=== PATIENT | male | born 1955 | race African-American/Black ===

== ENCOUNTER 2023-04-22 11:34 | Outpatient (CLI) | payer MEDICARE, MEDICAID, SELFPAY ==
--- NOTE | ~2023-04-22 | CT_ITS ---
EXAMINATION: CT sinus wo con DATE: 04/22/2023 11:50 INDICATION: Nasal cavity masses TECHNIQUE: Computed tomography (CT) of the paranasal sinuses was performed without contrast. Iterativ e reconstruction technique was employed. Exam dose: 287.97 mGy-cm total exam DLP. COMPARISON: None FINDINGS: There is rightward deviation of the nasal septum. There is prominent soft tissue swelling of the inferior nasal turbinates. There is dereje bullosa and intralamellar cell of the left middle nasal turbinate. The right middle nasal turbinate is engulfed by soft tissue swelling in the middle meatus and nasal c avity, which is contiguous with completely opacified right maxillary sinus with medial bulging of the right maxillary sinus wall suggesting mucocele or soft tissue mass. There is complete opacification of the right ostiomeatal complex. The left ostiomeatal complex is patent. There is patchy soft tissue thickening of the right ethmoid air cells. The left ethmoid air cells and left and right sphenoid and frontal sinuses as well as left maxillary sinus are normally developed a nd aerated. The mastoid air cells are normally developed and aerated bilaterally. IMPRESSION: Completely opacified right maxillary sinus with soft tissue projecting from the sinus in to the middle meatus and nasal cavity, with complete opacification of the right ostiomeatal complex. Right maxillary sinus mucocele or soft tissue mass lesion should be considered Patchy soft tissue thickening of the right ethmoid air cells Rightward deviation of nasal septum Dereje bullosa and intralamellar cell of left middle nasal turbinate Reviewed, dictated and finalized at Location A. Reviewed, dictated and finalized at location L. IMPRESSION: Completely opacified right maxillary sinus with soft tissue projec ting from the sinus into the middle meatus and nasal cavity, with complete opac ification of the right ostiomeatal complex. Right maxillary sinus mucocele or s oft tissue mass lesion should be considered Patchy soft tissue thickening of the right ethmoid air cells Rightward deviation of nasal septum Dereje bullosa and intralamellar cell of left middle nasal turbinate
== END 2023-04-22 11:35 ==
PROVIDERS: PCP Otolaryngology; Visit Provider Otolaryngology
DX: J34.89 Other specified disorders of nose and nasal sinuses (principal); J34.2 Deviated nasal septum
CPT/HCPCS: 70486

== ENCOUNTER 2023-05-30 13:21 | Outpatient (CLI) | payer MEDICARE, MEDICAID, SELFPAY ==
--- NOTE | ~2023-05-30 | PE_ITS ---
EXAMINATION: PET_PETPSMAST_PT DATE: 05/30/2023 15:53 INDICATION: Malignant neoplasm of prostate TECHNIQUE: 9.081 mCi of pipflufolastat F-18 (18-F-DCFPyL) was administered i.v. Low dose computed to mography (CT) images were acquired from the base of the brain to the base of the brain to the proxima l thighs for attenuation correction and anatomic localization. Positron emission tomography (PET) tomás ges were acquired in the same distribution beginning 89 minutes after injection. Images including fus ed PET/CT images were reconstructed in axial, coronal, and sagittal planes. Automated exposure contro l technique was employed. The dose-length product was 643.23mGy-cm. COMPARISON: None FINDINGS: Head/neck: Typical pattern of symmetric physiologic increased activity in the lacrimal, parotid and submandibula r glands as well as along the mucosa of the nasal and oral cavities, the pee-, naso- and hypopharynx, the glottis and esophagus. There is also a typical pattern of symmetric tiny foci of mild likely phy siologic neural ganglia uptake at a few bilateral cervical neural foramina. Near complete opacificati on of the right maxillary sinus with central increased attenuation and thickened sclerotic pace with low uptake along the pace of the sinus which likely inflammatory in etiology consistent with acute on chronic sinusitis. No pathologically enlarged cervical lymphadenopathy or suspicious foci of incre ased uptake in the visualized head or neck. Chest: No suspicious pulmonary nodules, pneumonia, pulmonary edema or pleural effusion. Heart size normal. A therosclerotic coronary artery calcification. No pericardial effusion. Thoracic aorta is normal in ca liber. No pathologically enlarged PSMA avid thoracic lymphadenopathy. Abdomen/pelvis/proximal thighs: Physiologic renal accumulation and excretion of activity in the kidneys, bladder and along portions o f ureters. Routine defect associated with a 2.1 cm right renal cyst. Normal degree and slightly heter ogenous pattern of increased uptake throughout the liver and spleen without radiologic correlate or d ominant PSMA avid lesion. The gallbladder, pancreas and bilateral adrenal glands are normal. Moderate uptake scattered throughout the bowels with typical duodenal and proximal jejunal predominance and w ithout radiologic correlate, also likely physiologic. Normal appendix. There are to approximately 1 c m diameter regions of prominent increased uptake without CT correlate at the right side of the prosta te, the more cephalad with maximal SUV of 23.9 in in the more caudal with maximal SUV of 40.6. Simila r small focus of mild uptake with maximal SUV of 6.2 at the inferior left prostate. There are a few a dditional small symmetric foci of mild likely ganglia related uptake at the lumbosacral neural forami na. No other abnormal foci of increased uptake or pathologically enlarged lymphadenopathy in the abdo men, pelvis or proximal thighs. Small left and moderate-sized right fat-containing inguinal hernias. Musculoskeletal: Small focus of intense likely extravasated soft tissue uptake at the site of injection at the right a ntecubital fossa. No other suspicious lytic, blastic or PSMA avid lesions. IMPRESSION: 1. 3 foci of increased uptake at the prostate consistent with primary prostate cancer. No evident met astatic disease. 2. Likely acute on chronic right maxillary sinusitis. Reviewed, dictated and finalized at location A. OGICAL SCIENCE TECHNICIAN FISH IMPRESSION: 1. 3 foci of increased uptake at the prostate consistent with primary prostate cancer. No evident metastatic disease. 2. Likely acute on chronic right maxillary sinusitis.
== END 2023-05-30 13:22 | disposition home or self-care (01) ==
PROVIDERS: PCP Internal Medicine; Visit Provider Urology
DX: C61 Malignant neoplasm of prostate (principal)
CPT/HCPCS: 78815; A9595

== ENCOUNTER 2023-08-05 07:32 | Outpatient (CLI) | payer MEDICARE, MEDICAID, SELFPAY ==
--- NOTE | ~2023-08-05 | MR_ITS ---
EXAMINATION: MR pelvis wo/w con DATE: 08/05/2023 08:56 INDICATION: Prostate cancer. TECHNIQUE: Magnetic resonance imaging (MRI) of the pelvis was performed without and with 17 mL MultiH ance intravenous contrast. COMPARISON: PET/CT 05/30/2023 FINDINGS: There is a right inguinal hernia containing fat and a portion of the bladder. There is a left inguina l hernia containing fat. There are no dilated loops of bowel. The prostate is mildly enlarged. There are no pathologically enlarged lymph nodes. There is no free intraperitoneal fluid. There is no osseo us metastatic disease. IMPRESSION: 1. Mildly enlarged prostate. No evidence of metastatic disease. Reviewed, dictated and finalized at location E. ATIONS CONSULTANT
== END 2023-08-05 07:33 | disposition home or self-care (01) ==
PROVIDERS: PCP Internal Medicine; Visit Provider Radiology Radiation Oncology
DX: C61 Malignant neoplasm of prostate (principal); N40.0 Benign prostatic hyperplasia without lower urinary tract symptoms
CPT/HCPCS: 72197; A9577

== ENCOUNTER 2024-10-08 09:13 | Outpatient (CLI) | payer MEDICARE, MEDICAID, SELFPAY ==
[2024-10-08 09:51] LABS: Basophils Percent Auto 0.4 % (0.2-1.2); Eosinophils Absolute Auto 0.1 K/mm3 (0-0.3); Eosinophils Percent Auto 4.8 % (0-4.4); Hematocrit 32.2 % (42.0-52.0); Hemoglobin 10.3 g/dL (14.0-18.0); Immature Granulocyte Absolute 0.01 K/mm3 (0.00-0.031); Immature Granulocyte Percent A 0.4 % (0-0.5); Lymphocytes Percent Auto 22.1 % (18.3-44.2); Mean Corpuscular Hemoglobin 28.5 pg (26-34); Mean Platelet Volume 9.7 fl (7.4-10.4); Monocytes Absolute Auto 0.3 K/mm3 (0.1-0.6); Monocytes Percent Auto 11.8 % (2.6-8.5); Neutrophils Absolute Auto 1.7 K/mm3 (1.3-6.7); Neutrophils Percent Auto 60.5 % (45.5-73.1); Platelet Count Result 150 k/mm3 (150-375); Red Blood Count 3.62 M/mm3 (4.6-6.20); White Blood Count 2.7 K/mm3 (4.5-10.0)
[2024-10-08 09:55] LABS: Add Urine Microscopic? YES; Appearance Urine Clear (Clear); Bilirubin Urine Negative (Negative); Blood Urine Trace (Negative); Color Urine Yellow (Yellow); Glucose Urine UA Negative (Negative); Ketones Urine Negative (Negative); Leukocyte Esterase Ur Negative LEU/UL (Negative); Nitrate Urine Negative (Negative); Protein Urine 2+ mg/dL (Negative); Specific Grav Ur 1.015 (1.001-1.035); Urobilinogen Urine 0.2 mg/dL (<2.0)
[2024-10-08 10:02] LABS: Alanine Aminotransferase 19 U/L (6-50); Albumin Level 4.6 g/dL (3.5-5.1); Alkaline Phosphatase 113 U/L (38-126); Anion Gap 15 mmol/L (4-12); Aspartate Amino Transferase 28 U/L (17-59); Bilirubin,Total 0.4 mg/dL (0.2-1.3); Blood Urea Nitrogen 45 mg/dL (9-20); Carbon Dioxide 22 mmol/L (22-30); Chloride 108 mmol/L (98-107); Estimated Glomerular Filt Rate 20; Glucose 96 mg/dL (65-110); Potassium 3.2 mmol/L (3.4-5.0); Sodium 145 mmol/L (137-145); Uric Acid 3.9 mg/dL (3.5-8.5)
--- OUTSIDE RECORDS SUMMARY | 2024-10-08 10:11 | XMS_ITS ---
Author Organization [facility] Office Address [address] [place] [address] Care Team Providers Care Lunch Cook Name Role Phone Terry Al Unavailable [phone] MEDICATIONS Medication SIG (Take, Route, Frequency, Duration) Notes Start Date End Date Status Flomax 0.4 MG 1 capsule Orally twi ce a day for 90 Active Sodium Bicarbonate 650 MG 2 tablet Orall y twice a day for 90 days 11/08/2022 Active cloNIDine HCl 0.1 MG Take 1 tablet by [facility] once daily for 90 Active amLODIPine Besylate 10 MG 1 tablet Orall y Once a day for 90 09/20/2022 Active amLODIPine Besylate 10 MG 1 tablet Orall y Once a day for 90 days 09/20/2022 Active Calcitriol 0.25 MCG Take 1 capsule by [facility] once daily for 90 Active Veltassa 8.4 GM DISSOLVE 1 PACKET IN WATER DRINK BY MOUTH ONCE DAILY. TAKE OTHER MEDICATIONS AT LEAST 3 HOURS BEFORE OR 3 HOURS AFTER THIS MEDICATION. for 30 Active Vitamin D (Ergocalciferol) 1.25 MG (60819 UT) Take 1 capsule by mouth once a week for 91 Active Encounters Encounter Location Date Provider Diagnosis [place] [facility] [address] [facility] [address] [place] [address] 06/30/2024 Al Stewart Chronic kidney disea se, stage 4 (severe) N18.4 ; Essential hypertension I10 ; Renal osteodystrophy N25.0 ; Type 2 diabetes mellitus with hyperglycemia E11.65 ; Secondary hyperparathyroidism, not elsewhere classified E21.1 and Neutropenia due to infection D70.3 ASSESSMENTS Encounter Date Diagnosis Assessment Notes Treatment Notes Treatment Clinical Notes Section Notes 06/30/2024 Chronic kidney disease, stage 4 (severe) (ICD-10 - N18.4) 06/30/2024 Essential hypertension (ICD-10 - I10) 06/30/2024 Renal osteodystrophy (ICD-10 - N25.0) 06/30/2024 Type 2 diabetes mellitus with hyperglycemia (ICD-10 - E11.65) 06/30/2024 Secondary hyperparathyroidism , not elsewhere classified (ICD-10 - E21.1) 06/30/2024 Neutropenia due to infection (ICD-10 - D70.3) PLAN OF TREATMENT Next Appt Details Provider Name:Al Stewart , 10/15/2024 01:30:00 PM, [address] [facility] [address], [address], Progress Notes * GEREMIAS ARRIAGADOB:1955 (69 yo M)Acc No.[id number]:06/30/2024 Progress Notes Patient: GEREMIAS ARRIAGA Provider: MD YUMIKO, F.Maria GCNgoc, F.A.SFransiscoN. :1955 Age:69 Y Sex:Male Date:06/30/2024 Address:[address] [place] [address] Subjective: * Chief Complaints: * * Medical History: * Medications: Taking amLODIPine Besylate 10 MG Tablet 1 tablet Orally Once a day , Taking amLODIPine Besylate 10 MG Tablet 1 tablet Orally Once a day , Taking Sodium Bicarbonate 650 MG Tablet 2 tablet Orally twice a day , Taking Flomax 0.4 MG Capsule 1 capsule Orally twice a day , Taking cloNIDine HCl 0.1 MG Tablet Take 1 tablet by mouth once daily , Taking Calcitriol 0.25 MCG Capsule Take 1 capsule by mouth once daily , Taking Vitamin D (Ergocalciferol) 1.25 MG (97115 UT) Capsule Take 1 capsule by mouth once a week , Taking Veltassa 8.4 GM Packet DISSOLVE 1 PACKET IN WATER DRINK BY MOUTH ONCE DAILY. TAKE OTHER MEDICATIONS AT LEAST 3 HOURS BEFORE OR 3 HOURS AFTER THIS MEDICATION. Objective: Assessment: * Assessment: 1. Chronic kidney disease, stage 4 (severe) - N18.4 (Primary) 2. Essential hypertension - I10 3. Renal osteodystrophy - N25.0 4. Type 2 diabetes mellitus with hyperglycemia - E11.65 5. Secondary hyperparathyroidism, not elsewhere classified - E21.1 6. Neutropenia due to infection - D70.3 Plan: * Treatment: * Billing Information: * Visit Code: [id number] Office Visit, Est Pt., Level 4. * Procedure Codes: * Sign off status: Pending * Provider: MD YUMIKO, F.A.C.P, F.A.S.N. Date: 06/30/2024
--- OUTSIDE RECORDS SUMMARY | 2024-10-08 10:11 | XMS_ITS ---
Author Organization [facility] Address [address] [facility] [address] [facility] [address] [place] [address] Care Team Providers Care Punch Hand Name Role Phone TerryVanceAl Unavailable [phone] MEDICATIONS Medication SIG (Take, Route, Frequency, Duration) Notes Start Date End Date Status Sodium Bicarbonate 650 MG 2 tablet Orall y three times a day for 90 days 08/20/2024 Active Encounters Encounter Location Date Provider Diagnosis [place] [facility] 2043 [facility] [address] [place] [address] 08/20/2024 Al Stewart PLAN OF TREATMENT Medication Medication Name Sig Start Date Stop Date Notes Sodium Bicarbonate 650 MG 2 tablet Orall y three times a day for 90 days 08/20/2024 Next Appt Details Provider Name:Al Stewart , 10/15/2024 01:30:00 PM, 2043 [facility] [address], [place], [address], Progress Notes * KWAMEGEREMIAS HOOPERDOB:1955 (69 yo M)Acc No.[id number]:08/20/2024 Patient: GEREMIAS ARRIAGA :1955 Age:69 Y Sex:Male Address:[address] [place] [address], [address] * Refills Start Sodium Bicarbonate Tablet, 650 MG, Orally, 540 Tablet, 2 tablet, three times a day, 90 days * * Date:
--- OUTSIDE RECORDS SUMMARY | 2024-10-08 10:12 | XMS_ITS | CONTINUITY OF CARE DOCUMENT ---
Author Name donny hines Address Unknown Organization [facility] Address [address] [facility] [address] [place] [address] Phone [phone] Care Team Providers Care Community Support Professional Name Role Phone Katherine Bates MD Unavailable Katherine Bates MD Unavailable INSURANCE PROVIDERS Payer name Policy type / Coverage type [place] red green party ID [facility] MEDICARE COMPLETE HMO Other [id number] [employer] Medicaid 1 [id number]
--- OUTSIDE RECORDS SUMMARY | 2024-10-08 10:12 | XMS_ITS ---
Author Organization [facility] Address [address] [facility] [address] [place] [address] Care Team Providers Care Storeroom Supervisor Name Role Phone Al Stewart Unavailable [phone] MEDICATIONS Medication SIG (Take, Route, Frequency, Duration) Notes Start Date End Date Status Calcitriol 0.25 MCG Take 1 capsule by mo ut once daily for 90 Active cloNIDine HCl 0.1 MG Take 1 tablet by mo ut once daily for 90 Active Veltassa 8.4 GM DISSOLVE 1 PACKET IN WATER DRINK BY MOUTH ONCE DAILY. TAKE OTHER MEDICATIONS AT LEAST 3 HOURS BEFORE OR 3 HOURS AFTER THIS MEDICATION. Orally Once a day for 30 days Active Vitamin D (Ergocalciferol) 1.25 MG (79507 UT) Take 1 capsule by mouth once a week for 91 Active Flomax 0.4 MG 1 capsule Orally twi ce a day for 90 Active amLODIPine Besylate 10 MG 1 tablet Orall y Once a day for 90 09/20/2022 Active amLODIPine Besylate 10 MG 1 tablet Orall y Once a day for 90 days 09/20/2022 Active Sodium Bicarbonate 650 MG 2 tablet Orall y twice a day for 90 days 11/08/2022 Active PROBLEMS Problem Type ICD Code Onset Dates Problem Status W/U Status Risk SNOMED Code Notes Problem Hyperlipidemia, unspecified (E78.5) Active confirmed Hyperlipidemia (13815660) Encounters Encounter Location Date Provider Diagnosis [place] [facility] 2043 [facility] 15 [place] [address] 08/20/2024 Al Stewart Chronic kidney disea se, stage 4 (severe) N18.4 ; Type 2 diabetes mellitus with hyperglycemia E11.65 ; Renal osteodystrophy N25.0 ; Secondary hyperparathyroidism, not elsewhere classified E21.1 ; Neutropenia due to infection D70.3 ; Essential hypertension I10 and Hyperlipidemia, unspecified E78.5 ASSESSMENTS Encounter Date Diagnosis Assessment Notes Treatment Notes Treatment Clinical Notes Section Notes 08/20/2024 Chronic kidney disease, stage 4 (severe) (ICD-10 - N18.4) 08/20/2024 Type 2 diabetes mellitus with hyperglycemia (ICD-10 - E11.65) 08/20/2024 Renal osteodystrophy (ICD-10 - N25.0) 08/20/2024 Secondary hyperparathyroidism , not elsewhere classified (ICD-10 - E21.1) 08/20/2024 Neutropenia due to infection (ICD-10 - D70.3) 08/20/2024 Essential hypertension (ICD-10 - I10) 08/20/2024 Hyperlipidemia, unspecified (ICD-10 - E78.5) PLAN OF TREATMENT Next Appt Details Provider Name:Al Terry , 10/15/2024 01:30:00 PM, [address], [facility], Progress Notes * GEREMIAS ARRIAGADOB:1955 (69 yo M)Acc No.[id number]:08/20/2024 Progress Notes Patient: GEREMIAS ARRIAGA Provider: MD YUMIKO, F.A.C.P, F.A.S.N. :1955 Age:69 Y Sex:Male Date:08/20/2024 Address:[address] [place] [address] Subjective: * Chief Complaints: * * Medical History: * Medications: Taking amLODIPine Besylate 10 MG Tablet 1 tablet Orally Once a day , Taking amLODIPine Besylate 10 MG Tablet 1 tablet Orally Once a day , Taking Sodium Bicarbonate 650 MG Tablet 2 tablet Orally twice a day , Taking Flomax 0.4 MG Capsule 1 capsule Orally twice a day , Taking Vitamin D (Ergocalciferol) 1.25 MG (95834 UT) Capsule Take 1 capsule by mouth once a week , Taking Veltassa 8.4 GM Packet DISSOLVE 1 PACKET IN WATER DRINK BY MOUTH ONCE DAILY. TAKE OTHER MEDICATIONS AT LEAST 3 HOURS BEFORE OR 3 HOURS AFTER THIS MEDICATION. Orally Once a day , Taking cloNIDine HCl 0.1 MG Tablet Take 1 tablet by mouth once daily , Taking Calcitriol 0.25 MCG Capsule Take 1 capsule by mouth once daily Objective: Assessment: * Assessment: 1. Chronic kidney disease, stage 4 (severe) - N18.4 (Primary) 2. Type 2 diabetes mellitus with hyperglycemia - E11.65 3. Renal osteodystrophy - N25.0 4. Secondary hyperparathyroidism, not elsewhere classified - E21.1 5. Neutropenia due to infection - D70.3 6. Essential hypertension - I10 7. Hyperlipidemia, unspecified - E78.5 Plan: * Treatment: * Billing Information: * Visit Code: [id number] Office Visit, Est Pt., Level 4. * Procedure Codes: * Sign off status: Pending * Provider: MD YUMIKO, F.A.C.P, F.A.S.N. Date: 08/20/2024
--- OUTSIDE RECORDS SUMMARY | 2024-10-08 10:12 | XMS_ITS | Patient Health Record ---
Author Organization [facility] Address [address] [place] [address] Care Team Providers Care Transformer Maker Name Role Phone Al Stewart Unavailable [phone] REASON FOR REFERRAL No Information MEDICATIONS Medication SIG (Take, Route, Frequency, Duration) Notes Start Date End Date Status Sodium Bicarbonate 650 MG 2 tablet Orall y three times a day for 90 days 08/20/2024 Active Calcitriol 0.25 MCG Take 1 capsule by ar ut once daily for 90 Active cloNIDine HCl 0.1 MG Take 1 tablet by mo ut once daily for 90 Active Veltassa 8.4 GM DISSOLVE 1 PACKET IN WATER DRINK BY MOUTH ONCE DAILY. TAKE OTHER MEDICATIONS AT LEAST 3 HOURS BEFORE OR 3 HOURS AFTER THIS MEDICATION. Orally Once a day for 30 days Active amLODIPine Besylate 10 MG 1 tablet Orall y Once a day for 90 09/20/2022 Active amLODIPine Besylate 10 MG 1 tablet Orall y Once a day for 90 days 09/20/2022 Active Vitamin D (Ergocalciferol) 1.25 MG (42607 UT) Take 1 capsule by mouth once a week for Active Flomax 0.4 MG 1 capsule Orally twi ce a day for 90 Active Sodium Bicarbonate 650 MG 2 tablet Orall y twice a day for 90 days 11/08/2022 Active PROBLEMS Problem Type ICD Code Onset Dates Problem Status W/U Status Risk SNOMED Code Notes Problem Neutropenia due to infection (D70.3) Active confirmed Neutropenia associated with infectious disease (83238390) Problem Type 2 diabetes mellitus with hyperglycemia (E11.65) Active confirmed Hyperglycemia d ue to type 2 diabetes mellitus (411637331561201) Problem Secondary hyperparathyroid ism, not elsewhere classified (E21.1) Active confirmed Secondary hyperparathyroidism (63001372) Problem Hyperlipidemia, unspecified (E78.5) Active confirmed Hyperlipidemia (71881674) Problem Chronic kidney disease, stage 4 (severe) (N18.4) Active confirmed Chronic kid marta disease stage 4 (201519727) Problem Renal osteodystrophy (N25.0) Active confirmed Renal osteodyst rophy (08039478) Problem Essential hypertension (I10) Active confirmed Essential hypertension (93240482) Encounters Encounter Location Date Provider Diagnosis [facility] [address] [place] [address] 12/05/2023 Al Stewart Chronic kidney disea se, stage 4 (severe) N18.4 ; Type 2 diabetes mellitus with hyperglycemia E11.65 ; Renal osteodystrophy N25.0 ; Secondary hyperparathyroidism, not elsewhere classified E21.1 and Neutropenia due to infection D70.3 [facility] [address] [place] [address] 02/20/2024 Al Stewart Chronic kidney disea se, stage 4 (severe) N18.4 ; Essential hypertension I10 ; Type 2 diabetes mellitus with hyperglycemia E11.65 ; Renal osteodystrophy N25.0 ; Secondary hyperparathyroidism, not elsewhere classified E21.1 and Neutropenia due to infection D70.3 [facility] [address] [place] [address] 04/30/2024 Al Stewart Chronic kidney disea se, stage 4 (severe) N18.4 ; Type 2 diabetes mellitus with hyperglycemia E11.65 ; Renal osteodystrophy N25.0 ; Secondary hyperparathyroidism, not elsewhere classified E21.1 ; Neutropenia due to infection D70.3 and Essential hypertension I10 [facility] [address] [place] [address] 06/30/2024 Al Stewart Chronic kidney disea se, stage 4 (severe) N18.4 ; Essential hypertension I10 ; Renal osteodystrophy N25.0 ; Type 2 diabetes mellitus with hyperglycemia E11.65 ; Secondary hyperparathyroidism, not elsewhere classified E21.1 and Neutropenia due to infection D70.3 [facility] [address] [address] 08/20/2024 Al Stewatr Chronic kidney disea se, stage 4 (severe) N18.4 ; Type 2 diabetes mellitus with hyperglycemia E11.65 ; Renal osteodystrophy N25.0 ; Secondary hyperparathyroidism, not elsewhere classified E21.1 ; Neutropenia due to infection D70.3 ; Essential hypertension I10 and Hyperlipidemia, unspecified E78.5 [facility] [address] [address] 08/20/2024 Al [facility] Office [address] [address] 03/04/2024 Al [facility] Office [address] [address] 04/12/2024 Al Stewart ASSESSMENTS Encounter Date Diagnosis Assessment Notes Treatment Notes Treatment Clinical Notes Section Notes 12/05/2023 Chronic kidney disease, stage 4 (severe) (ICD-10 - N18.4) 02/20/2024 Chronic kidney disease, stage 4 (severe) (ICD-10 - N18.4) 02/20/2024 Essential hypertension (ICD-10 - I10) 04/30/2024 Chronic kidney disease, stage 4 (severe) (ICD-10 - N18.4) 06/30/2024 Chronic kidney disease, stage 4 (severe) (ICD-10 - N18.4) 06/30/2024 Essential hypertension (ICD-10 - I10) 08/20/2024 Type 2 diabetes mellitus with hyperglycemia (ICD-10 - E11.65) 08/20/2024 Chronic kidney disease, stage 4 (severe) (ICD-10 - N18.4) 08/20/2024 Renal osteodystrophy (ICD-10 - N25.0) 06/30/2024 Renal osteodystrophy (ICD-10 - N25.0) 04/30/2024 Type 2 diabetes mellitus with hyperglycemia (ICD-10 - E11.65) 02/20/2024 Type 2 diabetes mellitus with hyperglycemia (ICD-10 - E11.65) 12/05/2023 Type 2 diabetes mellitus with hyperglycemia (ICD-10 - E11.65) 12/05/2023 Renal osteodystrophy (ICD-10 - N25.0) 02/20/2024 Renal osteodystrophy (ICD-10 - N25.0) 04/30/2024 Renal osteodystrophy (ICD-10 - N25.0) 06/30/2024 Type 2 diabetes mellitus with hyperglycemia (ICD-10 - E11.65) 08/20/2024 Secondary hyperparathyroidism , not elsewhere classified (ICD-10 - E21.1) 08/20/2024 Neutropenia due to infection (ICD-10 - D70.3) 06/30/2024 Secondary hyperparathyroidism , not elsewhere classified (ICD-10 - E21.1) 02/20/2024 Secondary hyperparathyroidism , not elsewhere classified (ICD-10 - E21.1) 04/30/2024 Secondary hyperparathyroidism , not elsewhere classified (ICD-10 - E21.1) 12/05/2023 Secondary hyperparathyroidism , not elsewhere classified (ICD-10 - E21.1) 12/05/2023 Neutropenia due to infection (ICD-10 - D70.3) 02/20/2024 Neutropenia due to infection (ICD-10 - D70.3) 04/30/2024 Neutropenia due to infection (ICD-10 - D70.3) 06/30/2024 Neutropenia due to infection (ICD-10 - D70.3) 08/20/2024 Essential hypertension (ICD-10 - I10) 08/20/2024 Hyperlipidemia, unspecified (ICD-10 - E78.5) 04/30/2024 Essential hypertension (ICD-10 - I10) PLAN OF TREATMENT Next Appt Details Provider Name:Al Stewart , 10/15/2024 01:30:00 PM, [address], [facility] [address], [place], [address],
[2024-10-08 10:14] LABS: Parathyroid Intact 26.4 pg/mL (14.5-75.2)
[2024-10-08 10:16] LABS: Hemoglobin A1C 5.8 % (<5.7)
[2024-10-08 10:47] LABS: Creatinine Urine 106.7 mg/dL
[2024-10-08 11:04] LABS: Vitamin D 25 Hydroxy 67.9 ng/mL
[2024-10-08 11:16] LABS: Microalbumin Urine Random 409.5 mg/L (0-16.7)
[2024-10-08 11:17] LABS: MALB Creatinine Ratio 383.8 mg/g (0-30)
== END 2024-10-08 09:14 | disposition home or self-care (01) ==
PROVIDERS: PCP Internal Medicine; Visit Provider Specialist
DX: I12.9 Hypertensive chronic kidney disease with stage 1 through stage 4 chronic kidney disease, or unspecified chronic kidney disease (principal); N18.4 Chronic kidney disease, stage 4 (severe); E55.9 Vitamin D deficiency, unspecified; N39.0 Urinary tract infection, site not specified; R35.0 Frequency of micturition; R73.09 Other abnormal glucose; E78.41 Elevated Lipoprotein(a); E21.3 Hyperparathyroidism, unspecified; R94.6 Abnormal results of thyroid function studies
CPT/HCPCS: 36415; 80053; 81001; 82043; 82306; 83036; 83970; 84443; 84550; 85025

== ENCOUNTER 2024-11-09 09:28 | Outpatient (CLI) | payer MEDICARE, MEDICAID, SELFPAY ==
[2024-11-09 09:57] LABS: Add Urine Microscopic? YES; Appearance Urine Clear (Clear); Bacteria Urine None Seen /hpf; Bilirubin Urine Negative (Negative); Blood Urine Negative (Negative); Color Urine Yellow (Yellow); Glucose Urine UA Negative (Negative); Ketones Urine Negative (Negative); Leukocyte Esterase Ur Negative LEU/UL (Negative); Nitrate Urine Negative (Negative); Non Pathogenic Casts 0-2; Protein Urine 1+ mg/dL (Negative); RBC Urine 0-2 /hpf (0-2); Specific Grav Ur 1.018 (1.001-1.035); Squamous Epithelial Cell Urine None Seen /hpf (Few); Urobilinogen Urine 0.2 mg/dL (<2.0); WBC Urine 0-5 /hpf (0-3)
[2024-11-09 10:01] LABS: Hemoglobin A1C 6.3 % (<5.7)
[2024-11-09 10:12] LABS: Alanine Aminotransferase 21 U/L (6-50); Albumin Level 4.8 g/dL (3.5-5.1); Alkaline Phosphatase 92 U/L (38-126); Anion Gap 13 mmol/L (4-12); Aspartate Amino Transferase 29 U/L (17-59); Bilirubin,Total 0.4 mg/dL (0.2-1.3); Blood Urea Nitrogen 61 mg/dL (9-20); Calcium 9.6 mg/dL (8.4-10.2); Carbon Dioxide 20 mmol/L (22-30); Chloride 107 mmol/L (98-107); Estimated Glomerular Filt Rate 16; Glucose 152 mg/dL (65-110); Potassium 4.4 mmol/L (3.4-5.0); Sodium 140 mmol/L (137-145); Uric Acid 3.4 mg/dL (3.5-8.5)
[2024-11-09 10:17] LABS: Parathyroid Intact 25.5 pg/mL (14.5-75.2)
[2024-11-09 10:26] LABS: Creatinine Urine 113.7 mg/dL
--- OUTSIDE RECORDS SUMMARY | 2024-11-09 10:33 | XMS_ITS ---
Author Organization [facility] Address [address] [facility] [address] [facility] [address] [place] [address] Care Team Providers Care Dye House Worker Name Role Phone TerryOwenAl Unavailable [phone] MEDICATIONS Medication SIG (Take, Route, Frequency, Duration) Notes Start Date End Date Status Sodium Bicarbonate 650 MG 2 tablet Orall y three times a day for 90 days 08/20/2024 Active Encounters Encounter Location Date Provider Diagnosis [place] [facility] [address] [facility] 15 [place] [address] 08/20/2024 Al Stewart PLAN OF TREATMENT Medication Medication Name Sig Start Date Stop Date Notes Sodium Bicarbonate 650 MG 2 tablet Orall y three times a day for 90 days 08/20/2024 Next Appt Details Provider Name:Al Stewart , 11/12/2024 02:00:00 PM, 2043 [facility] [address], [place], [address], Progress Notes * KWAMEGEREMIAS HOOPERDOB:1955 (69 yo M)Acc No.[id number]:08/20/2024 Patient: GEREMIAS ARRIAGA :1955 Age:69 Y Sex:Male Address:[address] [place] [address], [address] * Refills Start Sodium Bicarbonate Tablet, 650 MG, Orally, 540 Tablet, 2 tablet, three times a day, 90 days * * Date:
--- OUTSIDE RECORDS SUMMARY | 2024-11-09 10:33 | XMS_ITS ---
Author Organization [facility] Office Address [address] [facility] [address] [facility] [address] [place] [address] Care Team Providers Care Biopharmaceutical Rep Name Role Phone Al Stewart Unavailable [phone] MEDICATIONS Medication SIG (Take, Route, Fr equency, Duration) Notes Start Date End Date Status Veltassa 8.4 GM DISSOLVE 1 PACKET IN WATER DRINK BY MOUTH ONCE DAILY. TAKE OTHER MEDICATIONS AT LEAST 3 HOURS BEFORE OR 3 HOURS AFTER THIS MEDICATION. Orally Once a day for 30 days Ac tive Encounters Encounter Location Date Provider Diagnosis [place] [facility] [address] [facility] [address] [place] [address] 10/25/2024 Al Stewart PLAN OF TREATMENT Medication Medication Name Sig Start Date Stop Date Notes Veltassa 8.4 GM DISSOLVE 1 PACKET IN WATER DRINK BY MOUTH ONCE DAILY. TAKE OTHER MEDICATIONS AT LEAST 3 HOURS BEFORE OR 3 HOURS AFTER THIS MEDICATION. Orally Once a day for 30 days Next Appt Details Provider Name:Al Stewart , 11/12/2024 02:00:00 PM, [address] [facility], [facility] [address], [place], [address], Progress Notes * GEREMIAS ARRIAGADOB:1955 (69 yo M)Acc No.[id number]:10/25/2024 Patient: GEREMIAS ARRIAGA :1955 Age:69 Y Sex:Male Address:[address] [place] [address], [address] * Refills Refill Veltassa Packet, 8.4 GM, Orally, 30, DISSOLVE 1 PACKET IN WATER DRINK BY MOUTH ONCE DAILY. TAKE OTHER MEDICATIONS AT LEAST 3 HOURS BEFORE OR 3 HOURS AFTER THIS MEDICATION., Once a day, 30 days, Refills=3 * * Date:
--- OUTSIDE RECORDS SUMMARY | 2024-11-09 10:33 | XMS_ITS | CONTINUITY OF CARE DOCUMENT ---
Author Name donny hines Address Unknown Organization [facility] Address [address] [facility] [address] [place] [address] Phone [phone] Care Team Providers Care Network Consultant Name Role Phone Katherine Btaes MD Unavailable Katherine Bates MD Unavailable [phone] INSURANCE PROVIDERS Payer name Policy type / Coverage type [place] red libertarian ID [facility] MEDICARE COMPLETE HMO Other [id number] [employer] Medicaid 1 [id number]
--- OUTSIDE RECORDS SUMMARY | 2024-11-09 10:33 | XMS_ITS ---
Author Organization [facility] Office Address [address] [facility] [address] [place] [address] Care Team Providers Care Moving Picture Operator Name Role Phone Terry Al Unavailable [phone] PROBLEMS Problem Type ICD Code Onset Dates Problem Status W/U Status Risk SNOMED Code Notes Problem Malignant neoplasm of prostate (C61) Active confirmed Malignant neoplasm of prostate (227391920) Problem Gastro-esophagea l reflux disease without esophagitis (K21.9) Active confirmed Gastro-esophage al reflux disease without esophagitis (818157181) Problem Proteinuria, unspecified (R80.9) Active confirmed Proteinuria (78037859) Encounters Encounter Location Date Provider Diagnosis [place] [facility] [address] [facility] [address] [place] [address] 10/15/2024 Al Stewart Chronic kidney disea se, stage 4 (severe) N18.4 ; Essential hypertension I10 ; Type 2 diabetes mellitus with hyperglycemia E11.65 ; Renal osteodystrophy N25.0 ; Secondary hyperparathyroidism, not elsewhere classified E21.1 ; Neutropenia due to infection D70.3 ; Hyperlipidemia, unspecified E78.5 ; Malignant neoplasm of prostate C61 ; Gastro-esophageal reflux disease without esophagitis K21.9 and Proteinuria, unspecified R80.9 ASSESSMENTS Encounter Date Diagnosis Assessment Notes Treatment Notes Treatment Clinical Notes Section Notes 10/15/2024 Chronic kidney disease, stage 4 (severe) (ICD-10 - N18.4) 10/15/2024 Essential hypertension (ICD-10 - I10) 10/15/2024 Type 2 diabetes mellitus with hyperglycemia (ICD-10 - E11.65) 10/15/2024 Renal osteodystrophy (ICD-10 - N25.0) 10/15/2024 Secondary hyperparathyroidism , not elsewhere classified (ICD-10 - E21.1) 10/15/2024 Neutropenia due to infection (ICD-10 - D70.3) 10/15/2024 Hyperlipidemia, unspecified (ICD-10 - E78.5) 10/15/2024 Malignant neoplasm of prostate (ICD-10 - C61) 10/15/2024 Gastro-esophageal reflux disease without esophagitis (ICD-10 - K21.9) 10/15/2024 Proteinuria, unspecified (ICD-10 - R80.9) PLAN OF TREATMENT Next Appt Details Provider Name:Al Stewart , 11/12/2024 02:00:00 PM, [address] [facility] [address], [address], Progress Notes * GEREMIAS ARRIAGADOB:1955 (69 yo M)Acc No.[id number]:10/15/2024 Progress Notes Patient: GEREMIAS ARRIAGA Provider: MD YUMIKO, Quynh.A.C.P, F.A.S.N. :1955 Age:69 Y Sex:Male Date:10/15/2024 Address:[address] [place], [place] [id number] Subjective: * Chief Complaints: * * Medical History: Objective: Assessment: * Assessment: 1. Chronic kidney disease, stage 4 (severe) - N18.4 (Primary) 2. Essential hypertension - I10 3. Type 2 diabetes mellitus with hyperglycemia - E11.65 4. Renal osteodystrophy - N25.0 5. Secondary hyperparathyroidism, not elsewhere classified - E21.1 6. Neutropenia due to infection - D70.3 7. Hyperlipidemia, unspecified - E78.5 8. Malignant neoplasm of prostate - C61 9. Gastro-esophageal reflux disease without esophagitis - K21.9 10. Proteinuria, unspecified - R80.9 Plan: * Treatment: * Billing Information: * Visit Code: 63025 Office Visit, Est Pt., Level 4. * Procedure Codes: * Sign off status: Pending * Provider: MD YUMIKO, Quynh.A.C.P, F.A.S.N. Date: 10/15/2024
--- OUTSIDE RECORDS SUMMARY | 2024-11-09 10:34 | XMS_ITS | Patient Health Record ---
Author Organization [facility] Office Address [address] [place] [address] Care Team Providers Care Dye Weigher Name Role Phone Al Stewart Unavailable [phone] REASON FOR REFERRAL No Information MEDICATIONS Medication SIG (Take, Route, Frequency, Duration) Notes Start Date End Date Status Sodium Bicarbonate 650 MG 2 tablet Orall y three times a day for 90 days 08/20/2024 Active Veltassa 8.4 GM DISSOLVE 1 PACKET IN WATER DRINK BY MOUTH ONCE DAILY. TAKE OTHER MEDICATIONS AT LEAST 3 HOURS BEFORE OR 3 HOURS AFTER THIS MEDICATION. Orally Once a day for 30 days Active amLODIPine Besylate 10 MG 1 tablet Orall y Once a day for 90 09/20/2022 Active Calcitriol 0.25 MCG Take 1 capsule by mo uth once daily for 90 Active amLODIPine Besylate 10 MG 1 tablet Orall y Once a day for 90 days 09/20/2022 Active Vitamin D (Ergocalciferol) 1.25 MG (01406 UT) Take 1 capsule by mouth once a week for Active cloNIDine HCl 0.1 MG Take 1 tablet by mo uth once daily for 90 Active Flomax 0.4 MG 1 capsule Orally twi ce a day for 90 Active Sodium Bicarbonate 650 MG 2 tablet Orall y twice a day for 90 days 11/08/2022 Active PROBLEMS Problem Type ICD Code Onset Dates Problem Status W/U Status Risk SNOMED Code Notes Problem Malignant neoplasm of prostate (C61) Active confirmed Malignant jesus manuel plasm of prostate (414768332) Problem Neutropenia due to infection (D70.3) Active confirmed Neutropenia associated with infectious disease (84067911) Problem Type 2 diabetes mellitus with hyperglycemia (E11.65) Active confirmed Hyperglycemia d ue to type 2 diabetes mellitus (819456974250587) Problem Secondary hyperparathyroid ism, not elsewhere classified (E21.1) Active confirmed Secondary hyperparathyroidism (21212898) Problem Hyperlipidemia, unspecified (E78.5) Active confirmed Hyperlipidemia (24542048) Problem Gastro-esophagea l reflux disease without esophagitis (K21.9) Active confirmed Gastro-esophage al reflux disease without esophagitis (559828518) Problem Chronic kidney disease, stage 4 (severe) (N18.4) Active confirmed Chronic kid marta disease stage 4 (375816260) Problem Renal osteodystrophy (N25.0) Active confirmed Renal osteodyst rophy (56713489) Problem Proteinuria, unspecified (R80.9) Active confirmed Proteinuria (34741286) Problem Essential hypertension (I10) Active confirmed Essential hypertension (59672774) Encounters Encounter Location Date Provider Diagnosis [facility] [address] [place] [address] 12/05/2023 Al Stewart Chronic kidney disea se, stage 4 (severe) N18.4 ; Type 2 diabetes mellitus with hyperglycemia E11.65 ; Renal osteodystrophy N25.0 ; Secondary hyperparathyroidism, not elsewhere classified E21.1 and Neutropenia due to infection D70.3 [facility] [address] [place] [address] 02/20/2024 Al Stewart Chronic kidney disea se, stage 4 (severe) N18.4 ; Essential hypertension I10 ; Type 2 diabetes mellitus with hyperglycemia E11.65 ; Renal osteodystrophy N25.0 ; Secondary hyperparathyroidism, not elsewhere classified E21.1 and Neutropenia due to infection D70.3 [facility] [address] [place] [address] 04/30/2024 Al Stewart Chronic kidney disea se, stage 4 (severe) N18.4 ; Type 2 diabetes mellitus with hyperglycemia E11.65 ; Renal osteodystrophy N25.0 ; Secondary hyperparathyroidism, not elsewhere classified E21.1 ; Neutropenia due to infection D70.3 and Essential hypertension I10 [facility] [address] [place] [address] 06/30/2024 Al Stewart Chronic kidney disea se, stage 4 (severe) N18.4 ; Essential hypertension I10 ; Renal osteodystrophy N25.0 ; Type 2 diabetes mellitus with hyperglycemia E11.65 ; Secondary hyperparathyroidism, not elsewhere classified E21.1 and Neutropenia due to infection D70.3 [place] [facility] [address] [address] 08/20/2024 Al Stewart Chronic kidney disea se, stage 4 (severe) N18.4 ; Type 2 diabetes mellitus with hyperglycemia E11.65 ; Renal osteodystrophy N25.0 ; Secondary hyperparathyroidism, not elsewhere classified E21.1 ; Neutropenia due to infection D70.3 ; Essential hypertension I10 and Hyperlipidemia, unspecified E78.5 [facility] [address] [place] [address] 10/15/2024 Al Stewart Chronic kidney disea se, stage 4 (severe) N18.4 ; Essential hypertension I10 ; Type 2 diabetes mellitus with hyperglycemia E11.65 ; Renal osteodystrophy N25.0 ; Secondary hyperparathyroidism, not elsewhere classified E21.1 ; Neutropenia due to infection D70.3 ; Hyperlipidemia, unspecified E78.5 ; Malignant neoplasm of prostate C61 ; Gastro-esophageal reflux disease without esophagitis K21.9 and Proteinuria, unspecified R80.9 [facility] [address] [place] [address] 08/20/2024 Al [facility] [address] [place] [address] 10/25/2024 Al Stewart [place] [facility] [address] [address] 03/04/2024 Al Stewart [facility] [address] [place] [address] 04/12/2024 Al Stewart ASSESSMENTS Encounter Date Diagnosis [...] stage 4 (severe) (ICD-10 - N18.4) 10/15/2024 Chronic kidney disease, stage 4 (severe) (ICD-10 - N18.4) 10/15/2024 Essential hypertension (ICD-10 - I10) 08/20/2024 Renal osteodystrophy (ICD-10 - N25.0) 06/30/2024 [...] not elsewhere classified (ICD-10 - E21.1) 10/15/2024 Type 2 diabetes mellitus with hyperglycemia (ICD-10 - E11.65) 10/15/2024 Renal osteodystrophy (ICD-10 - N25.0) 08/20/2024 Neutropenia due to infection (ICD-10 - [...] D70.3) 08/20/2024 Essential hypertension (ICD-10 - I10) 10/15/2024 Secondary hyperparathyroidism , not elsewhere classified (ICD-10 - E21.1) 10/15/2024 Neutropenia due to infection (ICD-10 - D70.3) 08/20/2024 Hyperlipidemia, unspecified (ICD-10 - E78.5) 04/30/2024 Essential hypertension (ICD-10 - I10) 10/15/2024 Hyperlipidemia, unspecified (ICD-10 - E78.5) 10/15/2024 Malignant neoplasm of prostate (ICD-10 - C61) 10/15/2024 Gastro-esophageal reflux disease without esophagitis (ICD-10 - K21.9) 10/15/2024 Proteinuria, unspecified (ICD-10 - R80.9) PLAN OF TREATMENT Next Appt Details Provider Name:Al Stewart , 11/12/2024 02:00:00 PM, 2043 [facility], [facility] [address], [place], [address],
[2024-11-09 10:44] LABS: Prostate Specific Antigen < 0.1 ng/mL (< OR = 4.0)
[2024-11-09 10:51] LABS: MALB Creatinine Ratio 184.9 mg/g (0-30); Microalbumin Urine Random 210.2 mg/L (0-16.7)
[2024-11-09 15:11] LABS: Vitamin D 25 Hydroxy 67.4 ng/mL
== END 2024-11-09 09:29 | disposition home or self-care (01) ==
PROVIDERS: PCP Internal Medicine; Visit Provider Specialist
DX: Z12.5 Encounter for screening for malignant neoplasm of prostate (principal); I12.9 Hypertensive chronic kidney disease with stage 1 through stage 4 chronic kidney disease, or unspecified chronic kidney disease; N18.9 Chronic kidney disease, unspecified; E55.9 Vitamin D deficiency, unspecified; E21.3 Hyperparathyroidism, unspecified; R94.6 Abnormal results of thyroid function studies; R35.0 Frequency of micturition; R73.09 Other abnormal glucose; E78.41 Elevated Lipoprotein(a); N39.0 Urinary tract infection, site not specified
CPT/HCPCS: 36415; 80053; 81001; 82043; 82306; 83036; 83970; 84153; 84443; 84550; G0103

== ENCOUNTER 2024-12-24 11:06 | Outpatient (CLI) | payer MEDICARE, MEDICAID, SELFPAY ==
--- OUTSIDE RECORDS SUMMARY | 2024-12-24 11:11 | XMS_ITS | Data Portability ---
Author Organization [place] - [facility], Main Office Address [address] [place] [address] Care Team Providers Care Geriatric Care Manager Name Role Phone ANNA TINAJERO Primary Care Provider Assessment No assessment recorded. Plan of Treatment Reminders Order Date Submit Date Provider Last Modified By Organization Details Last Modified Time Details Appointments None recorded. Lab None recorded. Referral None recorded. Procedures None recorded. Surgeries None recorded. Imaging None recorded. Medication Orders olmesartan 40 mg tablet 2024 025 [facility] [address], [address] [place] [address], [id number], 5 12:17:22 Linzess 72 mcg capsule 2023 024 [email or web address] Not available 4 16:53:16 gabapentin 300 mg capsule 2023 024 [email or web address] [facility] [address], [address] [place] [address], [id number], 5 11:45:40 Patient TargetsNo targets recorded. Patient InstructionsNo instructions recorded. Reason for Referral None Reported. Results Created Date Observation Date Name Description Value Unit Range Abnormal Flag Note LastModifiedBy Organization Detail LastModifiedTime Result Notes None recorded. Problems Name Problem SNOMED Code Status Onset Date Resolution Date Notes Provider Name and Address Organization Details Recorded Time Backache 364228765 Completed Not Available [facility] 3 15:53:56 Adult health examinati on Active 2021 Not Available [facility] 4 03:11:17 Wax in ear canal 396095145 Completed Not Available [facility] 3 15:53:56 Albuminur ia 200988399 Active 2020 Not Available [facility] 4 03:11:18 Screening for malignant neoplasm of colon Completed 2 01/04/2022 Not Available [facility] 3 15:53:57 Chronic low back pain 813255811 Active 2021 Not Available [facility] 4 03:11:18 Chest pain 43124642 Completed Not Available [facility] 3 15:53:57 Hypertrig lyceridem ia 262095021 Active 2020 Not Available [facility] 4 03:11:18 Knee pain Completed Not Available [facility] 3 15:53:57 Osteoarth ritis 687991616 Active Not Available [facility] 4 03:11:18 Umbilical hernia 447658877 Active Not Available [facility] 4 03:11:18 Obesity 793779467 Active Not Available [facility] 4 03:11:18 Screening for malignant neoplasm of prostate Completed 202101/04/2022 Not Available [facility] 3 15:53:57 Bilateral tinnitus 90457873124 02 Completed 202110/07/2022 Manuela araya, RMA null, [place] [facility] [place] [employer] [facility] 3 08:01:15 Hyperlipi demia 38514530 Active Not Available [facility] 4 03:11:18 Essential hypertens ion 32473296 Active Not Available [facility] 4 03:11:18 Tinnitus 45798233 Active 2021 Not Available [facility] 4 03:11:18 Diabetes mellitus 99076465 Active Not Available [facility] 4 03:11:18 Neck pain 07969268 Completed Not Available [facility] 3 15:53:58 Gout 32250797 Active Not Available [facility] 4 03:11:18 Kidney disease 57795392 Active 2020 Not Available [facility] 4 03:11:18 Kidney stone 99493883 Active 2021 Not Available [facility] 4 03:11:18 Acute kidney injury 84909587 Active 2022 Not Available [facility] 4 03:11:17 Hyperkale leroy 51231595 Active 2022 Not Available [facility] 4 03:11:17 Type 2 diabetes mellitus 52371822 Completed 202210/07/2022 IRAM Jarrett null, [place] [facility] 3 08:01:09 Rhinitis 24098984 Active 2022 Not Available [facility] 4 03:11:18 Constipat ion 89003741 Active 2022 Not Available [facility] 4 03:11:17 Prostate specific antigen above reference range 119764048 Active 2022 Not Available [facility] 4 03:11:18 Vertigo 971237521 Active 2022 Not Available [facility] 4 03:11:18 Malignant neoplasm of prostate 907420203 Active 2023 Anna Tinajero MD [address] [place] [address], [phone] , [place] [facility] 4 14:48:04 Diabetic periphera l neuropath y 573614375 Active 2023 IRAM Jarrett null, [place] [facility] 4 12:53:16 Acute urinary tract infection 273400033 Active 2023 Kamilla Corrigan LPN null, [place] [facility] 4 16:59:48 Dysuria 30613678 Active 2023 Caty Ricketts MA null, [place] [facility] 4 10:56:19 Diverticu litis of colon 731653378 Active 2023 Kamilla Corrigan LPN null, [place] [facility] 4 12:11:37 Problem Notes None recorded. Medical Equipment None Reported. Allergies No known drug allergies Medications Name Sig Start Date Stop Date Status Note LastModified by Organization Details LastModified Time Accu-Chek Active Care Kit use to test TID 10/15 completed Not Available Not Available Not Available cyclobenza alvino 10 mg tablet TAKE 1 TABLET BY MOUTH THREE TIMES DAILY PRN 01/30 completed Not Available Not Available Not Available amoxicilli n 500 mg capsule 10/23 completed Not Available Not Available Not Available latanopros t 0.005 % eye drops INSTILL 1 DROP INTO EACH EYE AT BEDTIME active Not Available Not Available No t Available atorvastat in 40 mg tablet TAKE 1 TABLET BY MOUTH ONCE DAILY 08/04 completed Not Available Not Available Not Available carvedilol 25 mg tablet TAKE 1 TABLET BY MOUTH TWICE DAILY 09/26 completed Not Available Not Available Not Available clonidine HCl 0.1 mg tablet TAKE 1 TABLET BY MOUTH ONCE DAILY active Not Available Not Available No t Available cetirizine 10 mg tablet TAKE 1 TABLET BY MOUTH ONCE DAILY active Not Available Not Available No t Available azithromyc in 250 mg tablet TAKE 2 TABLETS BY MOUTH ON DAY 1, AND THEN TAKE 1 TABLET BY MOUTH ONCE A DAY ON DAY 2 THROUGH DAY 5 09/28 completed Not Available Not Available Not Available sulfametho xazole 400 mg-trimeth oprim 80 mg tablet TAKE 1 TABLET BY MOUTH EVERY 12 HOURS 10/15 completed Not Available Not Available Not Available hydrocodon e 5 mg-acetami nophen 325 mg tablet TAKE 1 TABLET BY MOUTH EVERY 6 HOURS NEEDED 01/30 completed Not Available Not Available Not Available lisinopril 20 mg tablet TAKE 1 TABLET BY MOUTH ONCE DAILY 03/12 completed Not Available Not Available Not Available Lantus U-100 Insulin 100 unit/mL subcutaneo us solution INJECT 15 UNITS SUBCUTANE OUSLY ONCE DAILY active Not Available Not Available No t Available Accu-Chek Softclix Lancets USE TO TEST 3 TIMES DAILY active Not Available Not Available No t Available amlodipine 5 mg tablet TAKE 1 TABLET BY MOUTH ONCE DAILY active Not Available Not Available No t Available simvastati n 80 mg tablet TAKE ONE TABLET BY MOUTH ONCE DAILY 01/01 completed Not Available Not Available Not Available allopurino l 100 mg tablet Take 1 tablet every day by oral route. 2012 active Not Available Not Available Not Avai lable ciprofloxa gris 500 mg tablet TAKE 1 TABLET BY MOUTH EVERY 12 HOURS FOR 7 DAYS 08/31 completed Not Available Not Available Not Available sulfametho xazole 800 mg-trimeth oprim 160 mg tablet TAKE 1 TABLET BY MOUTH TWICE DAILY 08/31 completed Not Available Not Available Not Available omeprazole 40 mg capsule,de layed release TAEK 1 CAPSULE BY MOUTH 30 MINUTES BEFORE MORNING MEAL ONCE DAILY active Not Available Not Available No t Available doxycyclin e monohydrat e 100 mg tablet TAKE 1 TABLET BY MOUTH EVERY 12 HOURS FOR 7 DAYS 08/31 completed Not Available Not Available Not Available tramadol 50 mg tablet TAKE ONE TABLET BY MOUTH TID if needed 11/30 completed Not Available Not Available Not Available simvastati n 40 mg tablet TAKE 1 TABLET BY MOUTH DAILY 05/02 completed Not Available Not Available Not Available meloxicam 7.5 mg tablet TAKE ONE TABLET BY MOUTH ONCE DAILY 06/03 completed Not Available Not Available Not Available tamsulosin 0.4 mg capsule TAKE 1 CAPSULE BY MOUTH TWICE DAILY 08/31 completed Not Available Not Available Not Available sodium bicarbonat e 650 mg tablet TAKE 2 TABLETS BY MOUTH TWICE DAILY active Dr. Richardson Not Available Not Available Not Available amlodipine 10 mg tablet TAKE 1 TABLET BY MOUTH ONCE DAILY 08/31 completed Not Available Not Available Not Available Humulin R Regular U-100 Insulin 100 unit/mL injection solution INJECT PER SLIDING SCALE MAX DAILY DOSE OF 45 UNITS DAILY active Not Available Not Available No t Available gabapentin 300 mg capsule TAKE 1 CAPSULE BY MOUTH ONCE DAILY AT BEDTIME 08/31 completed Not Available Not Available Not Available allopurino l 300 mg tablet TAKE 1 TABLET BY MOUTH ONCE DAILY active Not Available Not Available No t Available hydrochlor othiazide 25 mg tablet TAKE 1 TABLET BY MOUTH ONCE DAILY 05/01 completed Not Available Not Available Not Available gabapentin 100 mg capsule Take 1 capsule by mouth once daily 2024 active Not Available Not Available Not Avai lable ergocalcif akilah (vitamin D2) 1,250 mcg (50,000 unit) capsule TAKE 1 CAPSULE BY MOUTH ONCE A WEEK 06/14 completed Not Available Not Available Not Available azelastine 137 mcg (0.1 %) nasal spray USE 1 SPRAY(S) IN EACH NOSTRIL TWICE DAILY 08/31 completed Not Available Not Available Not Available methylpred nisolone 4 mg tablets in a dose pack TAKE BY MOUTH DIRECTED ON INSIDE OF PACKAGE active Not Available Not Available No t Available timolol maleate 0.5 % eye drops INSTILL 1 DROP INTO EACH EYE IN THE MORNING active Not Available Not Available No t Available lisinopril 40 mg tablet Take 1 tablet every day by oral route. active Not Available Not Available No t Available fluticason e propionate 50 mcg/actuat ion nasal spray,susp ension USE 1 SPRAY(S) IN EACH NOSTRIL ONCE DAILY active Not Available Not Available No t Available calcitriol 0.25 mcg capsule TAKE 1 CAPSULE BY MOUTH ONCE DAILY active Not Available Not Available No t Available naproxen 500 mg tablet TAKE ONE TABLET BY MOUTH TWICE DAILY 01/01 completed Not Available Not Available Not Available olmesartan 40 mg tablet TAKE 1 TABLET BY MOUTH ONCE DAILY active Not Available Not Available No t Available rosuvastat in 20 mg tablet Take 2 tablets every day by oral route. 10/21 completed Not Available Not Available Not Available rosuvastat in 40 mg tablet TAKE 1 TABLET BY MOUTH ONCE DAILY active Not Available Not Available No t Available Constulose 10 gram/15 mL oral solution TAKE 30 ML BY MOUTH EVERY 12 HOURS 08/31 completed Not Available Not Available Not Available Vitamin D OTC 11/09 completed Not Available Not Available Not Available GaviLyte-G 236 gram-22.74 gram-6.74 gram-5.86 gram oral solution 05/22 completed Not Available Not Available Not Available Colcrys 0.6 mg tablet Take one daily as needed active Not Available Not Available No t Available Accu-Chek Laisha Plus test strips USE 1 STRIP TO CHECK GLUCOSE THREE TIMES DAILY active Not Available Not Available No t Available Accu-Chek Laisha Plus Meter USE TO TEST 3 TIMES DAILY 08/23 completed Not Available Not Available Not Available Farxiga 5 mg tablet TAKE 1 TABLET BY MOUTH ONCE DAILY 01/30 completed Not Available Not Available Not Available Veltassa 8.4 gram oral powder packet DISSOLVE 1 PACKET IN WATER DRINK BY MOUTH ONCE DAILY. TAKE OTHER MEDICATII ONS AT LEAST 3 HOURS BEFORE OR 3 HOURS AFTER THIS MEDICATIO N. BY MOUTH ONCE A DAY. active Not Available Not Available No t Available Veltassa 1 packet daily 08/31 completed Not Available Not Available Not Available Linzess 72 mcg capsule TAKE 1 CAPSULE BY MOUTH ONCE DAILY active Not Available Not Available No t Available Vitals Date Recorded Body height Body mass index (BMI) Body weight Body temperature Heart rate Oxygen saturation Oxygen saturation in Arterial blood by Pulse oximetry Systolic blood pressure Diastolic blood pressure Provider Name and Address Organization Details Last Updated DateTime 5 172.72 cm 31.2 kg/m2 61181.4 4 g 96.9 [degF] 58 /min 98 % 98 % 154 mm[Hg] 80 mm[Hg] Manuela bass [facility] [employer] [facility] 5 11:43:24 Date Recorded Body height Body mass index (BMI) Body weight Oxygen saturation Oxygen saturation in Arterial blood by Pulse oximetry Heart rate Provider Name and Address Organization Details Last Updated DateTime 5 172.72 cm 31.8 kg/m2 10507.8 1 g 97 % 97 % 65 /min Shonna Dover [facility] [employer] [facility] [employer] [facility] 5 12:39:02 Date Recorded Systolic blood pressure Diastolic blood pressure Provider Name and Address Organization Details Last Updated DateTime 10/19/2024 160 mm[Hg] 74 mm[Hg] Manueal Doherty [facility] [employer] [facility] [employer] [facility] 10/19/2024 12:43:24 Date Recorded Body height Body mass index (BMI) Body weight Heart rate Oxygen saturation Oxygen saturation in Arterial blood by Pulse oximetry Systolic blood pressure Diastolic blood pressure Provider Name and Address Organization Details Last Updated DateTime 4 172.72 cm 29.9 kg/m2 65011.2 6 g 60 /min 98 % 98 % 132 mm[Hg] 80 mm[Hg] Maame Rizvi [facility] [employer] [facility] 4 14:35:50 Date Recorded Body height Body mass index (BMI) Body weight Body temperature Heart rate Oxygen saturation Oxygen saturation in Arterial blood by Pulse oximetry Systolic blood pressure Diastolic blood pressure Provider Name and Address Organization Details Last Updated DateTime 4 172.72 cm 30.7 kg/m2 50919.6 6 g 97.1 [degF] 74 /min 97 % 97 % 130 mm[Hg] 64 mm[Hg] IRAM Gaffney [email or web address] [facility] 4 16:31:58 Date Recorded Body height Body mass index (BMI) Body weight Body temperature Heart rate Oxygen saturation Oxygen saturation in Arterial blood by Pulse oximetry Systolic blood pressure Diastolic blood pressure Provider Name and Address Organization Details Last Updated DateTime 4 172.72 cm 29.3 kg/m2 54788.3 3 g 97.4 [degF] 74 /min 98 % 98 % 126 mm[Hg] 70 mm[Hg] IRAM Gaffney [email or web address] [facility] 4 14:28:12 Social History Question Answer Notes LastModified by Organizat ion Details LastModified Time Tobacco Smoking Status Never Smoker Not Available [facility] 09/18/2022 15:53:22 Do You Have An Advance Directive? No Papers Given [id number] Information not available 09/18/2022 Are You Blind Or Do You Have Difficulty Seeing? No MIGRATION.[id number] Information not available 09/18/2022 What Is Your Level Of Caffeine Consumption? Occasional MIGRATION.[id number] Information not available 09/18/2022 How Much Tobacco Do You Chew? None MIGRATION.[id number] 2327 Information not available 09/18/2022 Are You Deaf Or Do You Have Serious Difficulty Hearing? No MIGRATION.[id number] 0177 Information not available 09/18/2022 What Type Of Diet Are You Following? REGULAR MIGRATION.[id number] 5047 Information not available 09/18/2022 Which Illicit Or Recreational Drugs Have You Used? None MIGRATION.[id number] Information not available 09/18/2022 What Was The Date Of Your Most Recent Tobacco Screening? 09/05/2021 MIGRATION.[id number] Information not available 09/18/2022 Do You Use Sunscreen Routinely? No MIGRATION.153325 0771 Information not available 09/18/2022 Has Tobacco Cessation Counseling Been Provided? No MIGRATION.340537 0168 Information not available 09/18/2022 Do You Have Difficulty Walking Or Climbing Stairs? No MIGRATION.[id number] 1444 Information not available 09/18/2022 Sex: Male Functional Status Question Answer Note LastModified by Organizat ion Details LastModified Time Do you use any illicit or recreational drugs? No MIGRATION.[id number] 7334 Information not available 09/18/2022 Do you or have you ever used any other forms of tobacco or nicotine? No MIGRATION.398751 6809 Information not available 09/18/2022 What is your level of alcohol consumption? None MIGRATION.215474 8659 Information not available 09/18/2022 Do you or have you ever used smokeless tobacco? Never used smokeless tobacco MIGRATION.755113 9695 Information not available 09/18/2022 Do you have difficulty doing errands alone? No MIGRATION.899096 8070 Information not available 09/18/2022 What is your occupation? retired MIGRATION.[id number] 6717 Information not available 09/18/2022 Do you have difficulty dressing or bathing? No MIGRATION.563733 1867 Information not available 09/18/2022 Do you or have you ever used e-cigarettes or vape? Never used electronic cigarettes MIGRATION.303863 9743 Information not available 09/18/2022 What is your exercise level? Occasional MIGRATION.721248 3242 Information not available 09/18/2022 Mental Status Question Answer Note LastModified by Organizat ion Details LastModified Time Do you have difficulty concentrating, remembering or making decisions? No MIGRATION.[id number] 6 Information not available 09/18/2022 Family History Relationship Description Onset Age of this Age Resolved Age Notes LastModified by Organization Details LastModified Time Father Diabetes mellitus MIGRATION.658 [id number] Not available 09/18/2022 15:53:23 Father Essential hypertension MIGRATION.226 [id number] Not available 09/18/2022 15:53:23 Mother Diabetes mellitus MIGRATION.620 [id number] Not available 09/18/2022 15:53:23 Mother Essential hypertension MIGRATION.206 [id number] Not available 09/18/2022 15:53:23 Unspecified Relation Heart disease MIGRATION.370 [id number] Not available 09/18/2022 15:53:23 Unspecified Relation Kidney stone MIGRATION.03 0 [id number] Not available 09/18/2022 15:53:23 Medical History Condition Response KIDNEY STONES Y HYPERTENSION Y DIABETES, TYPE Y Immunizations Vaccine Type Date Status Note Provider Nam e and Address Organization Details Recorded Time SARS-COV-2 (COVID-19) vaccine, UNSPECIFIED 1 completed Not Available [facility] 08/28/2023 03:11:19 SARS-COV-2 (COVID-19) vaccine, UNSPECIFIED 1 completed Not Available [facility] 08/28/2023 03:11:19 pneumococcal polysaccharide PPV23 3 completed Not Available [facility] 08/28/2023 03:11:19 Past Encounters Encounter ID Performer Location Encounter Start Date Encounter Closed Date Diagnosis/Indication Diagnosis SNOMED-CT Code Diagnosis ICD10 Code Diagnosis Note [id number] Anna Tinajero MD [facility] [address] [address] 11/09/2020 00:00:00 11/09/2020 11:10:44 [id number] MD WALKER Bae[facility] [address] [address] 12/07/2020 00:00:00 12/07/2020 13:29:15 [id number] Anna Tinajero MD [facility] [address] [address] 05/01/2021 00:00:00 05/01/2021 13:12:05 [id number] Anna Tinajero MD [facility] [address] [address] 09/05/2021 00:00:00 09/05/2021 12:51:47 [id number] René Myers MD [facility] [address] [address] 10/10/2021 00:00:00 10/10/2021 12:16:45 [id number] Anna Tinajero MD [facility] [address] [address] 10/23/2021 00:00:00 10/23/2021 14:25:01 [id number] Ravi Alvarado MD [facility] [address] [address] 10/26/2021 00:00:00 10/26/2021 15:07:53 [id number] Ravi Alvarado MD [facility] [address] [place] [address] 11/30/2021 00:00:00 11/30/2021 15:41:32 [id number] Anna Tinajero MD [facility] [address] [address] 03/07/2022 00:00:00 03/07/2022 14:23:48 [id number] MD ROSA [facility] [address] [address] 06/10/2022 00:00:00 06/10/2022 11:13:28 [id number] MD ROSA Valle[facility] [address] [place] [address] 06/19/2022 00:00:00 06/19/2022 13:11:51 [id number] MD ROSA [facility] [address] [address] 07/04/2022 00:00:00 07/04/2022 14:52:31 [id number] MD WALKER [facility] [address] [place] [address] 08/08/2022 00:00:00 08/08/2022 14:43:04 [id number] MD WALKER [facility] [address] [place] [address] 09/04/2022 00:00:00 09/04/2022 10:26:56 [id number] Anna Tinajero MD [facility] [address] [place] [address]. [place] [address] 09/26/2022 15:51:40 09/26/2022 17:14:01 Acute kidney injury 77782269 N17.9 check labs, he wants to discuss it before getting ready for HD Hyperkalemia 50315019 E8 7.5 ON MEDS, check levels Essential hypertension 59074896 I10 watch [id number] Anna Tinajero MD [facility] Internal Med [address] [place] [address] 11/18/2022 09:00:19 11/18/2022 09:27:45 Rhinitis 94232841 J00 keep using Fluticason e Constipation 59742848 K5 9.00 lactulose helps Screening for malignant neoplasm of colon 324771714 Z12.11 [id number] Anna Tinajero MD [facility] Internal Med [address] [place] [address] 01/02/2023 10:00:51 01/02/2023 10:51:53 Diabetes mellitus 11399259 E11.9 under control Essential hypertension 29260386 I10 watch Gout 92706884 M10.9 stable Hyperlipidemia 93804569 E78.5 under control Osteoarthritis 978384524 M19.90 otc tylenol Kidney disease 11412151 N08 watching Tinnitus 52630706 H93.13 better Adult heal th examination 219248338 Z00.00 colonoscop y 12/2022 Screening for malignant neoplasm of prostate 318502157 Z12.5 [id number] René Myers MD [facility] [address] [facility] [address] [place] [address] 02/26/2023 08:39:51 02/26/2023 09:26:58 Prostate specific antigen above reference range 657032037 R97.20 :We discussed the utility and limitation s of the PSA as a screening test for prostate cancer. We discussed that an elevated PSA can be due to benign etiologies such as infection or urinary retention, and these should be ruled out prior to considerat ion of a biopsy. We discussed the AUA Guideline recommenda tion of screening once every 1-2 years for men aged 55-69 with a 10 year life expectancy , as well as considerat ion of PSA screening in men between the ages of 40-55 if they have significan t risk factors such as a strong family history of prostate/o varian/lilly ast cancer spanning multiple generation s, affecting multiple first-degr ee relatives, and that developed at younger ages. We discussed that isolated PSA elevations should be confirmed before considerat ion of biopsy. PLAN:-Urin alysis (to rule out infection) -PVR (to rule out retention) -Repeat PSA today-ALBA deferred by patient reporting he had a normal ALBA within the past year-If elevated >4, will call to schedule prostate biopsy, otherwise, will see him in May with DEANNA prior-Disc ussed with patient that if there is any interrupti on in his care plan, to reach out to our [facility] offices for assistance and he expressed good understand ing Kidney stone 74150204 N2 0.0 Stones were in the ureter on admission last week. Stones were treated by ureterosco py with laser lithotrips y and removal. Stent removed today via string. Will Plan on FU in 4 weeks with KUB and US prior. Other smaller stones were seen on CT scan in the kidney. Will assess to see if they need further therapy. 11/30/21 - His right stones were slightly visible on KUB, but not on US. He has no resiudal hydronephr osis after treatment of the ureteral stones. Will plan on observatio n for now. Will check a new KUB in 6 months. FU after the KUB. 06/10/2022 KUB ([place]) - no radiopaque stones PLAN:-Curr ently stone free -I offered him RTC annual with DEANNA prior vs Follow up as needed -- he wants another visit with DEANNA prior (this is set for May of 2023) and if negative, then PRN -He also wants his kidney function monitored and I explained that would be by his PCP or Nephrology [id number] Anna Tinajero MD [facility] Internal Med [facility] [address] [place] [address] 03/28/2023 11:41:36 03/28/2023 13:05:02 Prostate specific antigen above reference range 962770555 R97.20 discussed, motivated to get biopsy as recommende dhe will contact Dr Myers [id number] Anna Tinajero MD Mya_[facility] Internal Med [facility] [address] [place] [address] 05/22/2023 10:48:09 05/22/2023 11:41:12 Diabetes mellitus 68965514 E11.9 under control Essential hypertension 77088277 I10 BETTER Gout 73992519 M10.9 stable Hyperlipidemia 94250220 E78.5 under control Osteoarthritis 800837434 M19.90 otc tylenol Kidney disease 30722317 N08 stable GFR Tinnitus 27010475 H93.13 better Adult heal th examination 579108886 Z00.00 colonoscop y 12/2022 Pre-surger y evaluation 498598126 Z01.818 HIGH RISK, will get all the record first [id number] Anna Tinajero MD S_[facility] Internal Med [address] [place] [address] 06/10/2023 15:10:19 06/10/2023 15:44:45 Vertigo 964777193 R42 try meclizine 12.5 mg tid prn , hydration [id number] Anna Tinajero MD S_[facility] Internal Med [address] [place] [address] 07/23/2023 11:11:25 07/23/2023 12:53:15 Essential hypertension 61490025 I10 watch , keep taking same meds [id number] Anna Tinajero MD S_[facility] Internal Med [address] [place] [address] 12/24/2023 14:31:06 12/24/2023 14:55:45 Diabetes mellitus 73366198 E11.9 under control Essential hypertension 25409551 I10 under control Gout 23017612 M10.9 stable Hyperlipidemia 11345256 E78.5 under control Osteoarthritis 274955757 M19.90 otc tylenol Kidney disease 39735249 N08 stable GFR Tinnitus 86287922 H93.13 better Adult heal th examination 162018026 Z00.00 colonoscop y 12/2022 Malignant neoplasm of prostate 800814447 C61 s/p RT Diabetic p eripheral neuropathy 111708149 E11.40 [id number] Anna Tinajero MD S_[facility] Internal Med [address] [place] [address] 03/17/2024 16:12:34 03/17/2024 16:53:39 Constipation 09321454 K59.00 try Linzess , samples [id number] Anna Tinajero MD [facility] Internal [place] [place] [address] 04/28/2024 14:20:18 04/28/2024 15:00:04 Diabetes mellitus 78059641 E11.9 under control Essential hypertension 10418517 I10 under control Gout 28832741 M10.9 stable Hyperlipidemia 51848052 E78.5 under control Osteoarthritis 033455049 M19.90 otc tylenol Kidney disease 86521644 N08 stable GFR Tinnitus 47067825 H93.13 better Adult heal th examination 585940305 Z00.00 colonoscop y - 04/27/2024 FLU- NEVERPneum ovax- NEVER Malignant neoplasm of prostate 277008744 C61 s/p RT Diabetic p eripheral neuropathy 947123253 E11.40 mild symptoms, no meds needed Constipation 58206461 K5 9.00 Linzess helps [id number] Anna Tinajero MD [facility] Internal [facility] [address] [place] [address] 08/31/2024 11:26:13 08/31/2024 12:22:22 Diabetes mellitus 33382918 E11.9 under control Essential hypertension 87649597 I10 NOT under controldue to swelling, will stop amlodipine start olmesartan Gout 72499633 M10.9 stable Hyperlipidemia 39807680 E78.5 under control Osteoarthritis 580469897 M19.90 otc tylenol Kidney disease 82613335 N08 GFR getting better Tinnitus 03064458 H93.13 better Adult heal th examination 593422697 Z00.00 colonoscop y - 04/27/2024 FLU- NEVERPneum ovax- NEVER Malignant neoplasm of prostate 812968693 C61 s/p RT Diabetic p eripheral neuropathy 090352617 E11.40 mild symptoms, no meds needed Constipation 19057789 K5 9.00 Linzess helps [id number] Anna Tinajero MD [facility] Internal [facility] [address] [place] [address] 10/19/2024 12:12:12 10/19/2024 14:12:33 Essential hypertension 21181982 I10 NOT under controlHom e numbers are better, keep monitoring at home, recheck bp in 2 wks Health Concerns Section Related Observation LastModified by Organization Detai ls LastModified Time None Recorded Concern Status LastModified by Organization Details LastModified Time None Recorded Advance Directives Directive N: papers given Payers Encounter Date Sequence Insurance Name Policy Number Policy Marte Covered Member ID Marte Member ID Guarantor Name 12/24/2023 1 [facility] (MEDICARE REPLACEMENT/AD VANTAGE - PPO) [id number] Yosef Castaneda [id number] Yosef Castaneda 12/24/2023 2 [place] MEDICARE OR MEDICARE REPLACEMENT PRIMARY) Yosef Castaneda [id number] Yosef Castaneda 03/17/2024 1 [facility] (MEDICARE REPLACEMENT/AD VANTAGE - PPO) [id number] Yosef Castaneda [id number] Yosef Castaneda 03/17/2024 2 [place] OR MEDICARE REPLACEMENT PRIMARY) Yosef Castaneda [id number] Yosef Castaneda 04/28/2024 1 [facility] (MEDICARE REPLACEMENT/AD VANTAGE - PPO) [id number] Yosef Castaneda [id number] Yosef Castaneda 04/28/2024 2 [place] OR MEDICARE REPLACEMENT PRIMARY) Yosef Castaneda [id number] Yosef Castaneda 08/31/2024 1 [facility] (MEDICARE REPLACEMENT/AD VANTAGE - PPO) [id number] Yosef Castaneda [id number] Yosef Castaneda 08/31/2024 2 [place] OR MEDICARE REPLACEMENT PRIMARY) Yosef Castaneda [id number] Yosef Castaneda 10/19/2024 1 [facility] (MEDICARE REPLACEMENT/AD VANTAGE - PPO) [id number] Yosef Castaneda [id number] Yosef Castaneda 10/19/2024 2 [place] WHEN [place]ARE OR MEDICARE REPLACEMENT PRIMARY) Yosef Castaneda [id number] Yosef Castaneda Notes Date Note Type Note Provider Name and Address Organization Details Recorded Time 12/24/2023 text/html Doing fine, compliant to medications, no side affects, here for follow up DM- accu checks are 130.diet is under control,hasgets eye exam (09/13/22- in chart)no hypoglycemia. a1c-5.8 in 12/11no numbness ot tingling in the feetMeds- Humulin sliding scale, Lantus 15u dailyHTN- under control with medsMeds- amlodipine 10 mg qd,(was on Carvedilol 25 mg BID and Olmesartan 40 mg daily, was stopped in the hospital )Hyperlipidemia- watching diet.Meds-rosuvastat in 40 mg daily Prostate cancer- s/p RT, Dr Myers Gout- no recent flare up.Meds- allopurinol 300 mg daily Osteoarthritis- tylenol helps Kidney disease- last GFR 25, was 16, seeing nephrology, dr richardson,Meds- Calcitriol 0.25mg daily, Vitamin D 50,000u daily Neuropathy- mild symptoms , mostly feet numbness, symptoms getting worse at night Renal stone- no recurrence since 11/09 Tinnitus, seen ENT, mild symptoms, good balance, no hearing problem Anna Tinajero MD [address], [address], [place], [address], [employer] 12/24/2023 14:52:14 03/17/2024 text/html Pt is here today C/o constipation, States that he has tried OTC meds along with Miralax and nothing seems to help. Dr. Richardson has called in Constulose and states that does not really help.Getting worse since radiationBM every 5 days, gets bloating and discomfort.colonosco py 2023, polyps, ( no report ) Anna Tinajero MD [address], [address], [place], [address], [employer] 03/17/2024 16:54:44 04/28/2024 text/html Doing fine, compliant to medications, no side affects, here for follow upPT IS NOT FASTING DM- accu checks run 117-140diet is under controlgets eye exam- 10/11no hypoglycemia.a1c-5.8 in 12/11no numbness ot tingling in the feetMeds- Humulin sliding scale, Lantus 15u dailyHTN- under control with medsMeds- amlodipine 10 mg qd,(was on Carvedilol 25 mg BID and Olmesartan 40 mg daily, was stopped in the hospital )Hyperlipidemia- watching diet.Meds-rosuvastat in 40 mg daily Prostate cancer- s/p RT, Dr Myers Gout- no recent flare up.Meds- allopurinol 300 mg daily Osteoarthritis- tylenol helps Kidney disease- last GFR 23, was 16, seeing nephrology, dr richardson,Meds- Calcitriol 0.25mg daily, Vitamin D 50,000u daily Neuropathy- mild symptoms , mostly feet numbness, symptoms getting worse at night constipation- better with Linzess Renal stone- no recurrence since 11/09 Tinnitus, seen ENT, mild symptoms, good balance, no hearing problem Anna Tinajero MD [address] [facility], [address] [address], [place], [address], [place] [employer] 04/28/2024 14:48:49 08/31/2024 text/html Doing fine, compliant to medications, no side affects, here for follow upPT IS NOT FASTING ( [facility] ) DM- accu checks run 110- 130diet is under controlgets eye exam- 10/11no hypoglycemia.A1c-5.9 in 08/13/2024no numbness ot tingling in the feetMeds- Humulin sliding scale, Lantus 15u dailyHTN- under control with medsMeds- Amlodipine 10 mg qd, Clonidine 0.1mg daily(was on Carvedilol 25 mg BID and Olmesartan 40 mg daily, was stopped in the hospital )Hyperlipidemia- watching diet.Meds-Rosuvastat in 40 mg daily Prostate cancer- s/p RT, Dr Myers Gout- no recent flare up.Meds- Allopurinol 300 mg daily Osteoarthritis- tylenol helps Kidney disease- last GFR 23, was 16, seeing nephrology, dr richardson,Meds- Calcitriol 0.25mg daily, Vitamin D 50,000u daily, Veltassa 8.4g Neuropathy- mild symptoms , mostly feet numbness, symptoms getting betterMeds- Gabapentin 1-2 tabs daily Constipation- better with Linzess Renal stone- no recurrence since 11/09 Tinnitus, seen ENT, mild symptoms, good balance, no hearing problem Anna Tinajero MD [address], [address], [place], [address], [employer] 08/31/2024 12:18:19 10/19/2024 text/html Pt is here today for a 6 week follow upHe C/o having high b/p reading especially in the mornings. He did stop by one morning here at the office on 10/14 was 138/66He did bring his home monitor for comparisonOurs was 160/74 his machine was 165/82Pt denies any chest pains, headache or SOB Anna Tinajero MD [address], [address], [place], [address], [employer] 10/19/2024 13:13:09
--- OUTSIDE RECORDS SUMMARY | 2024-12-24 11:11 | XMS_ITS ---
Author Organization [facility] Address [address] [facility] [address] [facility] [address] [place] [address] Care Team Providers Care Pattern Wheel Maker Name Role Phone TerryOwenAl Unavailable [phone] Problems Problem Type SNOMED Code ICD Code Onset Dates Problem Status W/U Status Risk Notes Problem Anxiety disorder, unspecified (F41.9) Active confirmed Encounters Encounter Location Date Provider Diagnosis [place] [facility] [address] [facility] 15 [place] [address] 12/03/2024 Al Stewart Chronic kidney disea se, stage 4 (severe) N18.4 ; Essential hypertension I10 ; Type 2 diabetes mellitus with hyperglycemia E11.65 ; Renal osteodystrophy N25.0 ; Secondary hyperparathyroidism, not elsewhere classified E21.1 ; Neutropenia due to infection D70.3 ; Hyperlipidemia, unspecified E78.5 ; Malignant neoplasm of prostate C61 ; Gastro-esophageal reflux disease without esophagitis K21.9 ; Proteinuria, unspecified R80.9 and Anxiety disorder, unspecified F41.9 Assessments Encounter Date Diagnosis (ICD Code) Assessment Notes Treatment Notes Treatment Clinical Notes Section Notes 12/03/2024 Chronic kidney disease, stage 4 (severe) (ICD-10 - N18.4) 12/03/2024 Essential hypertension (ICD-10 - I10) 12/03/2024 Type 2 diabetes mellitus with hyperglycemia (ICD-10 - E11.65) 12/03/2024 Renal osteodystrophy (ICD-10 - N25.0) 12/03/2024 Secondary hyperparathyroidism , not elsewhere classified (ICD-10 - E21.1) 12/03/2024 Neutropenia due to infection (ICD-10 - D70.3) 12/03/2024 Hyperlipidemia, unspecified (ICD-10 - E78.5) 12/03/2024 Malignant neoplasm of prostate (ICD-10 - C61) 12/03/2024 Gastro-esophageal reflux disease without esophagitis (ICD-10 - K21.9) 12/03/2024 Proteinuria, unspecified (ICD-10 - R80.9) 12/03/2024 Anxiety disorder, unspecified (ICD-10 - F41.9) Plan Of Treatment Next Appt Details Provider Name:Al Terry , 12/29/2024 03:45:00 PM, [address] [facility] [address], [place], [address], Progress Notes * GEREMIAS ARRIAGADOB:1955 (69 yo M)Acc No.[id number]:12/03/2024 Patient: GEREMIAS ANTHONY Provider: Patel PAVON MD, F.A.C.P, F.A.S.N. :1955 A ge:69 Y S ex:Male Date:12/03/2024 Address:[address] [place], [place] [id number] Subjective: * Chief Complaints: Objective: Assessment: * Assessment: 1. C hronic kidney disease, stage 4 (severe) - N18.4 (Primary) 2 . E ssential hypertension - I10 3 . T ype 2 diabetes mellitus with hyperglycemia - E11.65? 4. R enal osteodystrophy - N25.0 5 . S econdary hyperparathyroidism, not elsewhere classified - E21.1 6 . N eutropenia due to infection - D70.3 7 . H yperlipidemia, unspecified - E78.5 8 . M alignant neoplasm of prostate - C61 9 . G graciela-esophageal reflux disease without esophagitis - K21.9 1 0. P roteinuria, unspecified - R80.9 1 1. A nxiety disorder, unspecified - F41.9 Plan: * Billing Information: * Visit Code: 40090 Office Visit, Est Pt., Level 5. * Procedure Codes: * Electronic signature of Cait Stewart MD on 12/24/2024 at 11:11 AM CDT Sign off status: Pending * Provider: Patel PAVON MD, F.A.C.P, F.A.S.N. Date: 0 12/03/2024 Generated for Printing/Faxing/eTransmitting on: 0 12/24/2024 11:11 AM CDT
--- OUTSIDE RECORDS SUMMARY | 2024-12-24 11:12 | XMS_ITS ---
Author Organization [facility] Address [address] [place] [address] Care Team Providers Care Toxics Program Officer Name Role Phone Vance Stewartjit Unavailable [phone] Encounters Encounter Location Date Provider Diagnosis [place] [facility] [address] [facility] 15 [place] [address] 11/12/2024 Al Stewart Plan Of Treatment Next Appt Details Provider Name:Al Stewart , 12/29/2024 03:45:00 PM, [address] [facility], [address], [place], [address], Progress Notes * GEREMIAS ARRIAGADOB:1955 (69 yo M)Acc No.[id number]:11/12/2024 Progress Notes Patient: GEREMIAS ANTHONY Provider: Patel PAVON MD, Quynh.Mark.C.P, F.A.S.N. :1955 A ge:69 Y S ex:Male Date:11/12/2024 Address:[address] [place], [place] [id number] Subjective: * Chief Complaints: * * Medical History: Objective: * Vitals: Assessment: Plan: * Treatment: * Billing Information: * Visit Code: * Procedure Codes: * Electronic signature of Cait Stewart MD on 12/24/2024 at 11:11 AM CDT Sign off status: Pending * Provider: Patel PAVON MD, Quynh.Mark.C.P, F.A.S.N. Date: 11/12/2024 Generated for Printing/Faxing/eTransmitting on: 0 12/24/2024 11:11 AM CDT
--- OUTSIDE RECORDS SUMMARY | 2024-12-24 11:12 | XMS_ITS | Patient Health Record ---
Author Organization [facility] Address [address] [place] [address] Care Team Providers Care Utility Appraiser Name Role Phone Al Stewart Unavailable [phone] Reason For Referral No Information Medications Medication SIG (Take, Route, Frequency, Duration) Notes [...] 09/20/2022 Active Vitamin D (Ergocalciferol) 1.25 MG (40918 UT) Take 1 capsule by mouth once a week for Active cloNIDine HCl 0.1 MG Take 1 tablet by mo uth once daily for 90 Active Flomax 0.4 MG 1 capsule Orally twi ce a day for 90 Active Sodium Bicarbonate 650 MG 2 tablet Orall y twice a day for 90 days 11/08/2022 Active Problems Problem Type SNOMED Code ICD Code Onset Dates Problem Status W/U Status Risk Notes Problem Malignant neoplasm o f prostate (383598852) Malignant neoplasm of prostate (C61) Active confirmed Problem Neutropenia associated with infectious disease (29333936) Neutropenia due to infection (D70.3) Active confirmed Problem Hyperglycemia due to type 2 diabetes mellitus (716066843532850) Type 2 diabetes mellitus with hyperglycemia (E11.65) Active confirmed Problem Secondary hyperparathyroidism (66589460) Secondary hyperparathyroid ism, not elsewhere classified (E21.1) Active confirmed Problem Hyperlipidemia (20367065) Hyperlipidemia, unspecified (E78.5) Active confirmed Problem Anxiety disorder (309462029) Anxiety disorder, unspecified (F41.9) Active confirmed Problem Gastro-esophageal reflux disease without esophagitis (590431509) Gastro-esophagea l reflux disease without esophagitis (K21.9) Active confirmed Problem Chronic kidney disease stage 4 (803431984) Chronic kidney disease, stage 4 (severe) (N18.4) Active confirmed Problem Renal osteodystrophy (35493000) Renal osteodystrophy (N25.0) Active confirmed Problem Proteinuria (33165748) Proteinuria, unspecified (R80.9) Active confirmed Problem Essential hypertension (31107052) Essential hypertension (I10) Active confirmed Encounters Encounter Location Date Provider Diagnosis [facility] [address] [place] [address] 02/20/2024 Al Stewart Chronic kidney disea se, stage 4 (severe) N18.4 ; Essential hypertension I10 ; Type 2 diabetes mellitus with hyperglycemia E11.65 ; Renal osteodystrophy N25.0 ; Secondary hyperparathyroidism, not elsewhere classified E21.1 and Neutropenia due to infection D70.3 [facility] [address] [place] [address] 04/30/2024 Al Stewart Chronic kidney disea se, stage 4 (severe) N18.4 ; Type 2 diabetes mellitus with hyperglycemia E11.65 ; Renal osteodystrophy N25.0 ; Secondary hyperparathyroidism, not elsewhere classified E21.1 ; Neutropenia due to infection D70.3 and Essential hypertension I10 [facility] [address] [place] [address] 06/30/2024 Al Stewart Chronic kidney disea se, stage 4 (severe) N18.4 ; Essential hypertension I10 ; Renal osteodystrophy N25.0 ; Type 2 diabetes mellitus with hyperglycemia E11.65 ; Secondary hyperparathyroidism, not elsewhere classified E21.1 and Neutropenia due to infection D70.3 [facility] [address] [place] [address] 08/20/2024 Al Stewart Chronic kidney disea se, stage 4 (severe) N18.4 ; Type 2 diabetes mellitus with hyperglycemia E11.65 ; Renal osteodystrophy N25.0 ; Secondary hyperparathyroidism, not elsewhere classified E21.1 ; Neutropenia due to infection D70.3 ; Essential hypertension I10 and Hyperlipidemia, unspecified E78.5 [place] [facility] [address] [address] 10/15/2024 Al Stewart Chronic kidney disea se, stage 4 (severe) N18.4 ; Essential hypertension I10 ; Type 2 diabetes mellitus with hyperglycemia E11.65 ; Renal osteodystrophy N25.0 ; Secondary hyperparathyroidism, not elsewhere classified E21.1 ; Neutropenia due to infection D70.3 ; Hyperlipidemia, unspecified E78.5 ; Malignant neoplasm of prostate C61 ; Gastro-esophageal reflux disease without esophagitis K21.9 and Proteinuria, unspecified R80.9 [place] [facility] [address] [address] 12/03/2024 Al Stewart Chronic kidney disea se, [...] unspecified R80.9 and Anxiety disorder, unspecified F41.9 [place] [facility] [address] [address] 08/20/2024 Al Stewart [place] [facility] [address] [place] [address] 10/25/2024 Al Stewart [place] [facility] [address] [address] 03/04/2024 Al Stewart [place] [facility] [address] [place] [address] 04/12/2024 Al Stewart Assessments Encounter Date Diagnosis (ICD Code) Assessment Notes Treatment Notes Treatment Clinical Notes Section Notes 02/20/2024 Chronic kidney disease, stage 4 (severe) [...] stage 4 (severe) (ICD-10 - N18.4) 12/03/2024 Chronic kidney disease, stage 4 (severe) (ICD-10 - N18.4) 10/15/2024 Essential hypertension (ICD-10 - I10) 08/20/2024 Renal osteodystrophy (ICD-10 - N25.0) 06/30/2024 Renal osteodystrophy (ICD-10 - N25.0) 12/03/2024 Essential hypertension (ICD-10 - I10) 04/30/2024 Type 2 diabetes mellitus with hyperglycemia (ICD-10 - E11.65) 02/20/2024 Type 2 diabetes mellitus with hyperglycemia (ICD-10 - E11.65) 02/20/2024 Renal osteodystrophy (ICD-10 - N25.0) 04/30/2024 Renal osteodystrophy (ICD-10 - N25.0) 06/30/2024 Type 2 diabetes mellitus with hyperglycemia (ICD-10 - E11.65) 08/20/2024 Secondary hyperparathyroidism , not elsewhere classified (ICD-10 - E21.1) 10/15/2024 Type 2 diabetes mellitus with hyperglycemia (ICD-10 - E11.65) 12/03/2024 Type 2 diabetes mellitus with hyperglycemia (ICD-10 - E11.65) 12/03/2024 Renal osteodystrophy (ICD-10 - N25.0) 10/15/2024 Renal osteodystrophy (ICD-10 - N25.0) 08/20/2024 Neutropenia due to infection (ICD-10 - D70.3) 06/30/2024 Secondary hyperparathyroidism , not elsewhere classified (ICD-10 - E21.1) 02/20/2024 Secondary hyperparathyroidism , not elsewhere classified (ICD-10 - E21.1) 04/30/2024 Secondary hyperparathyroidism , not elsewhere classified (ICD-10 - E21.1) 02/20/2024 Neutropenia due to infection (ICD-10 - D70.3) 04/30/2024 Neutropenia due to infection (ICD-10 - D70.3) 06/30/2024 Neutropenia due to infection (ICD-10 - D70.3) 08/20/2024 Essential hypertension (ICD-10 - I10) 10/15/2024 Secondary hyperparathyroidism , not elsewhere classified (ICD-10 - E21.1) 12/03/2024 Secondary hyperparathyroidism , not elsewhere classified (ICD-10 - E21.1) 10/15/2024 Neutropenia due to infection (ICD-10 - D70.3) 12/03/2024 Neutropenia due to infection (ICD-10 - D70.3) 08/20/2024 Hyperlipidemia, unspecified (ICD-10 - E78.5) 04/30/2024 Essential hypertension (ICD-10 - I10) 12/03/2024 Hyperlipidemia, unspecified (ICD-10 - E78.5) 10/15/2024 Hyperlipidemia, unspecified (ICD-10 - E78.5) 12/03/2024 Malignant neoplasm of prostate (ICD-10 - C61) 10/15/2024 Malignant neoplasm of prostate (ICD-10 - C61) 10/15/2024 Gastro-esophageal reflux disease without esophagitis (ICD-10 - K21.9) 12/03/2024 Gastro-esophageal reflux disease without esophagitis (ICD-10 - K21.9) 10/15/2024 Proteinuria, unspecified (ICD-10 - R80.9) 12/03/2024 Proteinuria, unspecified (ICD-10 - R80.9) 12/03/2024 Anxiety disorder, unspecified (ICD-10 - F41.9) Plan Of Treatment Next Appt Details Provider Name:Al Stewart , 12/29/2024 03:45:00 PM, [address], [facility] [address], [place], [address],
--- OUTSIDE RECORDS SUMMARY | 2024-12-24 11:12 | XMS_ITS ---
Author Organization [facility] Address [address] [facility] [address] [place] [address] Care Team Providers Care Carving Machine Operator Name Role Phone TerryOwenAl Unavailable [phone] Problems Problem Type SNOMED Code ICD Code Onset Dates Problem Status W/U Status Risk Notes Problem Malignant neoplasm of prostate (616916723) Malignant neoplasm of prostate (C61) Active confirmed Problem Gastro-esophagea l reflux disease without esophagitis (895180992) Gastro-esophage al reflux disease without esophagitis (K21.9) Active confirmed Problem Proteinuria (76046578) Proteinuria, unspecified (R80.9) Active confirmed Encounters Encounter Location Date Provider Diagnosis [place] [facility] [address] [facility] 15 [place] [address] 10/15/2024 Al Stewart Chronic kidney disea se, stage 4 (severe) N18.4 ; Essential hypertension I10 ; Type 2 diabetes mellitus with hyperglycemia E11.65 ; Renal osteodystrophy N25.0 ; Secondary hyperparathyroidism, not elsewhere classified E21.1 ; Neutropenia due to infection D70.3 ; Hyperlipidemia, unspecified E78.5 ; Malignant neoplasm of prostate C61 ; Gastro-esophageal reflux disease without esophagitis K21.9 and Proteinuria, unspecified R80.9 Assessments Encounter Date Diagnosis (ICD Code) Assessment [...] K21.9) 10/15/2024 Proteinuria, unspecified (ICD-10 - R80.9) Plan Of Treatment Next Appt Details Provider Name:Al Stewart , 12/29/2024 03:45:00 PM, [address] [facility], [facility] [address], [place], [address], Progress Notes * GEREMIAS ARRIAGADOB:1955 (69 yo M)Acc No.[id number]:10/15/2024 Progress Notes Patient: GEREMIAS ANTHONY Provider: Patel PAVON MD, F.A.C.P, F.A.S.N. :1955 A ge:69 Y S ex:Male Date:10/15/2024 Address:[address] [place] [address] Subjective: * Chief Complaints: * * Medical History: Objective: * Vitals: Assessment: * Assessment: 1. C hronic kidney [...] 1 0. P roteinuria, unspecified - R80.9 Plan: * Treatment: * Billing Information: * Visit Code: 41238 Office Visit, Est Pt., Level 4. * Procedure Codes: * Electronic signature of Cait Stewart MD on 12/24/2024 at 11:11 AM CDT Sign off status: Pending * Provider: Patel PAVON MD, F.A.C.P, F.A.S.N. Date: 0 10/15/2024 Generated for Printing/Faxing/eTransmitting on: 0 12/24/2024 11:11 AM CDT
[2024-12-24 11:50] LABS: Alanine Aminotransferase 62 U/L (6-50); Albumin Level 4.5 g/dL (3.5-5.1); Alkaline Phosphatase 91 U/L (38-126); Anion Gap 12 mmol/L (4-12); Aspartate Amino Transferase 62 U/L (17-59); Bilirubin,Total 0.4 mg/dL (0.2-1.3); Blood Urea Nitrogen 52 mg/dL (9-20); Calcium 9.1 mg/dL (8.4-10.2); Carbon Dioxide 21 mmol/L (22-30); Chloride 109 mmol/L (98-107); Estimated Glomerular Filt Rate 15; Glucose 109 mg/dL (65-110); Potassium 3.8 mmol/L (3.4-5.0); Sodium 142 mmol/L (137-145); Total Protein 7.5 g/dL (6.3-8.2); Uric Acid 3.2 mg/dL (3.5-8.5)
[2024-12-24 11:56] LABS: Add Urine Microscopic? YES; Appearance Urine Clear (Clear); Bacteria Urine None Seen /hpf; Bilirubin Urine Negative (Negative); Blood Urine Trace (Negative); Color Urine Yellow (Yellow); Glucose Urine UA Negative (Negative); Ketones Urine Negative (Negative); Leukocyte Esterase Ur Negative LEU/UL (Negative); Nitrate Urine Negative (Negative); Non Pathogenic Casts 0-2; Protein Urine 2+ mg/dL (Negative); RBC Urine 0-2 /hpf (0-2); Specific Grav Ur 1.014 (1.001-1.035); Squamous Epithelial Cell Urine None Seen /hpf (Few); Urobilinogen Urine 0.2 mg/dL (<2.0); WBC Urine 0-5 /hpf (0-3); pH Urine 5.5 (5.0-9.0)
[2024-12-24 11:58] LABS: Parathyroid Intact 35.8 pg/mL (14.5-75.2)
[2024-12-24 12:11] LABS: Vitamin D 25 Hydroxy 69.4 ng/mL
[2024-12-24 12:14] LABS: Creatinine Urine 92.1 mg/dL
[2024-12-24 12:30] LABS: MALB Creatinine Ratio 256.6 mg/g (0-30); Microalbumin Urine Random 236.3 mg/L (0-16.7)
== END 2024-12-24 11:07 | disposition home or self-care (01) ==
LOC: ANHLAB 11:09
PROVIDERS: PCP Internal Medicine; Visit Provider Internal Medicine Cardiovascular Disease
DX: N18.30 Chronic kidney disease, stage 3 unspecified (principal); R82.90 Unspecified abnormal findings in urine; E21.3 Hyperparathyroidism, unspecified; E55.9 Vitamin D deficiency, unspecified; N39.0 Urinary tract infection, site not specified; R35.0 Frequency of micturition
CPT/HCPCS: 36415; 80053; 81001; 82043; 82306; 83970; 84550

== ENCOUNTER 2025-03-07 09:22 | Outpatient (CLI) | payer MEDICARE, MEDICAID, SELFPAY ==
[2025-03-07 10:01] LABS: Hematocrit 30.7 % (42.0-52.0); Hemoglobin 9.8 g/dL (14.0-18.0); Immature Granulocyte Percent A 0.3 % (0-0.5); Lymphocytes Absolute Auto 0.68 K/mm3 (0.9-3.2); Mean Corpuscular HGB Conc 31.9 g/dl (32-36); Mean Corpuscular Hemoglobin 28.2 pg (26-34); Mean Corpuscular Volume 88.2 fl (80-100); Nucleated Red Blood Cells Absolute Auto 0.000 K/mm3 (0.0-0.012); Nucleated Red Blood Cells Perc 0.0 % (0.0-0.2); Platelet Count Result 167 k/mm3 (150-375); Red Blood Count 3.48 M/mm3 (4.6-6.20); White Blood Count 2.9 K/mm3 (4.5-10.0)
--- OUTSIDE RECORDS SUMMARY | 2025-03-07 10:08 | XMS_ITS ---
Author Organization [facility] Address [address] [facility] [address] [facility] [address] [place] [address] Care Team Providers Care Helper Coordinator Name Role Phone StewartOwenAl Unavailable [phone] Problems Problem Type SNOMED Code ICD Code Onset Dates Problem Status W/U Status Risk Notes Problem Anxiety disorder (683310252) Anxiety disorder, unspecified (F41.9) Active confirmed Encounters Encounter Location Date Provider Diagnosis [place] [facility] 2043 [facility] 15 [place] [address] 12/03/2024 Al Stewart Chronic kidney disea se, [...] Next Appt Details Provider Name:Al Stewart , 03/11/2025 02:15:00 PM, [address], [address], Progress Notes * GEREMIAS ARRIAGADOB:1955 (70 yo M)Acc No.[id number]:12/03/2024 Patient: GEREMIAS ANTHONY Provider: Patel PAVON MD, F.A.C.P, F.A.S.N. :1955 A ge:69 Y S ex:Male Date:12/03/2024 Address:[address] [place], [place] [id number] Subjective: * Chief Complaints: Objective: Assessment: * [...] Plan: * Billing Information: * Visit Code: 79914 Office Visit, Est Pt., Level 5. * Procedure Codes: * Electronic signature of Cait Stewart MD on 03/07/2025 at 10:08 AM CDT Sign off status: Pending * Provider: Patel PAVON MD, F.A.C.P, F.A.S.N. Date: 0 12/03/2024 Generated for Printing/Faxing/eTransmitting on: 0 03/07/2025 10:08 AM CDT
--- OUTSIDE RECORDS SUMMARY | 2025-03-07 10:09 | XMS_ITS | Patient Health Record ---
Author Organization [facility] Address [address] [place] [address] Care Team Providers Care Analysis Mgr Name Role Phone Al Stewart Unavailable [phone] Reason For Referral No Information Medications Medication SIG (Take, Route, Frequency, Duration) Notes Start Date End Date Status Sodium Bicarbonate 650 MG 2 tablet Orall y three times a day; Duration: 90 days 08/20/2024 Active cloNIDine HCl 0.1 MG Take 1 tablet by mo ut once daily; Duration: 90 Active Veltassa 8.4 GM DISSOLVE 1 PACKET IN WATER DRINK BY MOUTH ONCE DAILY. TAKE OTHER MEDICATIONS AT LEAST 3 HOURS BEFORE OR 3 HOURS AFTER THIS MEDICATION. Orally Once a day; Duration: 30 days Active Calcitriol 0.25 MCG Take 1 capsule by mo ut once daily; Duration: 90 Active amLODIPine Besylate 10 MG 1 tablet Orall y Once a day; Duration: 90 09/20/2022 Active amLODIPine Besylate 10 MG 1 tablet Orall y Once a day; Duration: 90 days 09/20/2022 Active Vitamin D (Ergocalciferol) 1.25 MG (13402 UT) Take 1 capsule by mouth once a week; Duration: 91 Active Flomax 0.4 MG 1 capsule Orally twi ce a day; Duration: 90 Active Sodium Bicarbonate 650 MG 2 tablet Orall y twice a day; Duration: 90 days 11/08/2022 Active Problems Problem Type SNOMED Code ICD Code Onset Dates Problem Status W/U Status Risk Notes Problem Malignant neoplasm o f prostate (713672342) Malignant neoplasm of prostate (C61) Active confirmed Problem Neutropenia associated with infectious disease (12344006) Neutropenia due to infection (D70.3) Active confirmed Problem Hyperglycemia due to type 2 diabetes mellitus (782583160232225) Type 2 diabetes mellitus with hyperglycemia (E11.65) Active confirmed Problem Secondary hyperparathyroidism (28986662) Secondary hyperparathyroid ism, not elsewhere classified (E21.1) Active confirmed Problem Hyperlipidemia (35011792) Hyperlipidemia, unspecified (E78.5) Active confirmed Problem Anxiety disorder (408784373) Anxiety disorder, unspecified (F41.9) Active confirmed Problem Gastro-esophageal reflux disease without esophagitis (408741652) Gastro-esophagea l reflux disease without esophagitis (K21.9) Active confirmed Problem Chronic kidney disease stage 4 (027642399) Chronic kidney disease, stage 4 (severe) (N18.4) Active confirmed Problem Renal osteodystrophy (32959601) Renal osteodystrophy (N25.0) Active confirmed Problem Proteinuria (50060243) Proteinuria, unspecified (R80.9) Active confirmed Problem Essential hypertension (49787552) Essential hypertension (I10) Active confirmed Encounters Encounter Location Date Provider Diagnosis [facility] [address] [place] [address] 04/30/2024 Al Stewart Chronic kidney disea se, stage 4 (severe) N18.4 ; Type 2 diabetes mellitus with hyperglycemia E11.65 ; Renal osteodystrophy N25.0 ; Secondary hyperparathyroidism, not elsewhere classified E21.1 ; Neutropenia due to infection D70.3 and Essential hypertension I10 [facility] [address] [place] [address] 06/30/2024 Al Stewart Chronic kidney disea se, stage 4 (severe) N18.4 ; Essential hypertension I10 ; Renal osteodystrophy N25.0 ; Type 2 diabetes mellitus with hyperglycemia E11.65 ; Secondary hyperparathyroidism, not elsewhere classified E21.1 and Neutropenia due to infection D70.3 [facility] [address] [place] [address] 08/20/2024 Al Stewart Chronic kidney disea se, stage 4 (severe) N18.4 ; Type 2 diabetes mellitus with hyperglycemia E11.65 ; Renal osteodystrophy N25.0 ; Secondary hyperparathyroidism, not elsewhere classified E21.1 ; Neutropenia due to infection D70.3 ; Essential hypertension I10 and Hyperlipidemia, unspecified E78.5 [facility] [address] [place] [address] 10/15/2024 Al Stewart Chronic kidney disea se, stage 4 (severe) N18.4 ; Essential hypertension I10 ; Type 2 diabetes mellitus with hyperglycemia E11.65 ; Renal osteodystrophy N25.0 ; Secondary hyperparathyroidism, not elsewhere classified E21.1 ; Neutropenia due to infection D70.3 ; Hyperlipidemia, unspecified E78.5 ; Malignant neoplasm of prostate C61 ; Gastro-esophageal reflux disease without esophagitis K21.9 and Proteinuria, unspecified R80.9 [facility] [address] [place] [address] 12/03/2024 Al Stewart Chronic kidney disea se, [...] unspecified R80.9 and Anxiety disorder, unspecified F41.9 [facility] [address] [place] [address] 12/29/2024 Al Stewart Chronic kidney disea se, stage 4 (severe) N18.4 ; Essential hypertension I10 ; Type 2 diabetes mellitus with hyperglycemia E11.65 ; Renal osteodystrophy N25.0 ; Secondary hyperparathyroidism, not elsewhere classified E21.1 ; Neutropenia due to infection D70.3 ; Hyperlipidemia, unspecified E78.5 ; Malignant neoplasm of prostate C61 ; Gastro-esophageal reflux disease without esophagitis K21.9 ; Proteinuria, unspecified R80.9 ; Anxiety disorder, unspecified F41.9 and Hyperkalemia E87.5 [facility] [address] [place] [address] 08/20/2024 Al [facility] [address] [place] [address] 10/25/2024 Al [facility] [address] [place] [address] 04/12/2024 Al Stewart Assessments Encounter Date Diagnosis (ICD Code) Assessment Notes Treatment Notes Treatment Clinical Notes Section Notes 04/30/2024 Chronic kidney disease, stage 4 (severe) (ICD-10 - N18.4) 06/30/2024 Chronic kidney disease, stage 4 (severe) (ICD-10 - N18.4) 06/30/2024 Essential hypertension (ICD-10 - I10) 08/20/2024 Chronic kidney disease, stage 4 (severe) (ICD-10 - N18.4) 08/20/2024 Type 2 diabetes mellitus with hyperglycemia (ICD-10 - E11.65) 10/15/2024 Chronic kidney disease, stage 4 (severe) (ICD-10 - N18.4) 12/29/2024 Chronic kidney disease, stage 4 (severe) (ICD-10 - N18.4) 12/29/2024 Essential hypertension (ICD-10 - I10) 12/03/2024 Chronic kidney disease, stage 4 (severe) (ICD-10 - N18.4) 12/03/2024 Essential hypertension (ICD-10 - I10) 12/29/2024 Type 2 diabetes mellitus with hyperglycemia (ICD-10 - E11.65) 10/15/2024 Essential hypertension (ICD-10 - I10) 08/20/2024 Renal osteodystrophy (ICD-10 - N25.0) 06/30/2024 Renal osteodystrophy (ICD-10 - N25.0) 04/30/2024 Type 2 diabetes mellitus with hyperglycemia (ICD-10 - E11.65) 04/30/2024 Renal osteodystrophy (ICD-10 - N25.0) 06/30/2024 Type 2 diabetes mellitus with hyperglycemia (ICD-10 - E11.65) 10/15/2024 Type 2 diabetes mellitus with hyperglycemia (ICD-10 - E11.65) 08/20/2024 Secondary hyperparathyroidism , not elsewhere classified (ICD-10 - E21.1) 12/29/2024 Renal osteodystrophy (ICD-10 - N25.0) 12/03/2024 Type 2 diabetes mellitus with hyperglycemia (ICD-10 - E11.65) 12/03/2024 Renal osteodystrophy (ICD-10 - N25.0) 12/29/2024 Secondary hyperparathyroidism , not elsewhere classified (ICD-10 - E21.1) 10/15/2024 Renal osteodystrophy (ICD-10 - N25.0) 06/30/2024 Secondary hyperparathyroidism , not elsewhere classified (ICD-10 - E21.1) 08/20/2024 Neutropenia due to infection (ICD-10 - D70.3) 04/30/2024 Secondary hyperparathyroidism , not elsewhere classified (ICD-10 - E21.1) 04/30/2024 Neutropenia due to infection (ICD-10 - D70.3) 06/30/2024 Neutropenia due to infection (ICD-10 - D70.3) 10/15/2024 Secondary hyperparathyroidism , not elsewhere classified (ICD-10 - E21.1) 08/20/2024 Essential hypertension (ICD-10 - I10) 12/29/2024 Neutropenia due to infection (ICD-10 - D70.3) 12/03/2024 Secondary hyperparathyroidism , not elsewhere classified (ICD-10 - E21.1) 12/03/2024 Neutropenia due to infection (ICD-10 - D70.3) 10/15/2024 Neutropenia due to infection (ICD-10 - D70.3) 08/20/2024 Hyperlipidemia, unspecified (ICD-10 - E78.5) 12/29/2024 Hyperlipidemia, unspecified (ICD-10 - E78.5) 04/30/2024 Essential hypertension (ICD-10 - I10) 10/15/2024 Hyperlipidemia, unspecified (ICD-10 - E78.5) 12/29/2024 Malignant neoplasm of prostate (ICD-10 - C61) 12/03/2024 Hyperlipidemia, unspecified (ICD-10 - E78.5) 12/03/2024 Malignant neoplasm of prostate (ICD-10 - C61) 12/29/2024 Gastro-esophageal reflux disease without esophagitis (ICD-10 - K21.9) 10/15/2024 Malignant neoplasm of prostate (ICD-10 - C61) 10/15/2024 Gastro-esophageal reflux disease without esophagitis (ICD-10 - K21.9) 12/29/2024 Proteinuria, unspecified (ICD-10 - R80.9) 12/03/2024 Gastro-esophageal reflux disease without esophagitis (ICD-10 - K21.9) 12/03/2024 Proteinuria, unspecified (ICD-10 - R80.9) 12/29/2024 Anxiety disorder, unspecified (ICD-10 - F41.9) 10/15/2024 Proteinuria, unspecified (ICD-10 - R80.9) 12/29/2024 Hyperkalemia (ICD-10 - E87.5) 12/03/2024 Anxiety disorder, unspecified (ICD-10 - F41.9) Plan Of Treatment Next Appt Details Provider Name:Al Stewart , 03/11/2025 02:15:00 PM, [address] [facility], [facility] [address], [address],
--- OUTSIDE RECORDS SUMMARY | 2025-03-07 10:09 | XMS_ITS ---
Author Organization [facility] Address [address] [place] [address] Care Team Providers Care Invoice Coder Name Role Phone Vance Stewartjit Unavailable [phone] Encounters Encounter Location Date Provider Diagnosis [place] [facility] 2043 [facility] 15 [place] [address] 11/12/2024 Al Stewart Plan Of Treatment Next Appt Details Provider Name:Al Stewart , 03/11/2025 02:15:00 PM, 2043 [facility], [facility] [address], [place], [address], Progress Notes * GEREMIAS ARRIAGADOB:1955 (70 yo M)Acc No.[id number]:11/12/2024 Progress Notes Patient: GEREMIAS ANTHONY Provider: Patel PAVON MD, Quynh.Mark.C.P, F.A.S.N. :1955 A ge:69 Y S ex:Male Date:11/12/2024 Address:[address] [place], [place] [phone] Subjective: * Chief Complaints: * * Medical History: Objective: * Vitals: Assessment: Plan: * Treatment: * Billing Information: * Visit Code: * Procedure Codes: * Electronic signature of Cait Stewart MD on 03/07/2025 at 10:08 AM CDT Sign off status: Pending * Provider: Patel PAVON MD, Quynh.Mark.C.P, F.A.S.N. Date: 0 11/12/2024 Generated for Printing/Faxing/eTransmitting on: 0 03/07/2025 10:08 AM CDT
--- OUTSIDE RECORDS SUMMARY | 2025-03-07 10:09 | XMS_ITS ---
Author Organization [facility] Address [address] [facility] [address] [facility] [address] [place] [address] Care Team Providers Care Card Scraper Name Role Phone Al Stewart Unavailable [phone] Encounters Encounter Location Date Provider Diagnosis [place] [facility] 2043 [facility] 15 [place] [address] 12/29/2024 Al Stewart Chronic kidney disea se, [...] Anxiety disorder, unspecified F41.9 and Hyperkalemia E87.5 Assessments Encounter Date Diagnosis (ICD Code) Assessment Notes Treatment Notes Treatment Clinical Notes Section Notes 12/29/2024 Chronic kidney disease, stage 4 (severe) (ICD-10 - N18.4) 12/29/2024 Essential hypertension (ICD-10 - I10) 12/29/2024 Type 2 diabetes mellitus with hyperglycemia (ICD-10 - E11.65) 12/29/2024 Renal osteodystrophy (ICD-10 - N25.0) 12/29/2024 Secondary hyperparathyroidism , not elsewhere classified (ICD-10 - E21.1) 12/29/2024 Neutropenia due to infection (ICD-10 - D70.3) 12/29/2024 Hyperlipidemia, unspecified (ICD-10 - E78.5) 12/29/2024 Malignant neoplasm of prostate (ICD-10 - C61) 12/29/2024 Gastro-esophageal reflux disease without esophagitis (ICD-10 - K21.9) 12/29/2024 Proteinuria, unspecified (ICD-10 - R80.9) 12/29/2024 Anxiety disorder, unspecified (ICD-10 - F41.9) 12/29/2024 Hyperkalemia (ICD-10 - E87.5) Plan Of Treatment Next Appt Details Provider Name:Al Terry , 03/11/2025 02:15:00 PM, 2043 [facility] [address], [address], Progress Notes * GEREMIAS ARRIAGADOB:1955 (70 yo M)Acc No.[id number]:12/29/2024 Progress Notes Patient: GEREMIAS ANTHONY Provider: Patel PAVON MD, F.A.C.P, F.A.S.N. :1955 A ge:69 Y S ex:Male Date:12/29/2024 Address:[address] [place], [place] [id number] Subjective: * Chief Complaints: * * Medical [...] 1. A nxiety disorder, unspecified - F41.9 1 2. H yperkalemia - E87.5 Plan: * Treatment: * Billing Information: * Visit Code: 57504 Office Visit, Est Pt., Level 4. * Procedure Codes: * Electronic signature of Cait Stewatr MD on 03/07/2025 at 10:08 AM CDT Sign off status: Pending * Provider: Patel PAVON MD, F.A.C.P, F.A.S.N. Date: 0 12/29/2024 Generated for Printing/Faxing/eTransmitting on: 0 03/07/2025 10:08 AM CDT
--- OUTSIDE RECORDS SUMMARY | 2025-03-07 10:09 | XMS_ITS | Continuity of Care Document ---
Author Organization [facility] Address [address] [place] [address] Phone Care Team Providers Care Front Desk Host Name Role Phone Tejinder Webb MD Unavailable Unavailable Allergies, Adverse Reactions, Alerts Substance Reaction Status Criticality No Known Drug Allergies Other Active No I nformation Medications Medication Instructions Dosage Effective Dates (start - stop) Status Comments ENALAPRIL MALEATE 10 MG TAB 1 QD-daily - Active ENALAPRIL MALEATE 10MG TABS 1 QD-daily - Active ZOCOR 40MG TABS 1 QHS - Active LIPITOR 10 MG TABLET 1 QPM - No Longer Active Please ask pt to schedule appt, These refills only, [facility] 01-27-06 AVANDIA 4 MG TABLET .5 QAM No Longer Active please add note pt must call for appt and labs with dr webb befor next refill per dr webb prb ENALAPRIL MALEATE 10 MG TAB 1 QD - No Longer Active ENALAPRIL MALEATE 10 MG TAB 1 QD - No Longer Active ENALAPRIL MALEATE 10 MG TAB 1 QD - No Longer Active ENALAPRIL MALEATE 10 MG TAB 1 QD - No Longer Active ENALAPRIL MALEATE 10MG TABS 1 QID - No Longer Active AVANDIA 4 MG TABLET .5 QAM No Longer Active LIPITOR 10 MG TABLET 1 QPM - No Longer Active AVANDIA 4MG TABLET .5 QAM No Longer Active AVANDIA 4MG TABLET 1 QAM No Longer Active LIPITOR 10MG TABLET 1 QPM No Longer Active 03/07/04 -- This refill only, patient must call office for appt. cm/ma AVANDIA 4MG TABLET 1 QAM No Longer Active 03/07/04 This refill only, patient MUST call office for appt/. cm/ma ENALAPRIL MALEATE 10MG TAB 1 QD - No Longer Active ENALAPRIL MALEATE 10MG TABS 1 QID - No Longer Active ENALAPRIL MALEATE 10MG TAB 1 QD - No Longer Active ENALAPRIL MALEATE 10MG TABS 1 QD - No Longer Active ENALAPRIL MALEATE 10MG TAB .5 QD - No Longer Active LIPITOR 10MG TABLET 1 QPM No Longer Active AVANDIA 4MG TABLET 1 QAM No Longer Active AVANDIA 4MG TABLET .5 QAM No Longer Active AVANDIA 4MG TABLET 1 QAM No Longer Active 09/16/03 pt has appt. on 10/12/03 cm/ma ENALAPRIL MALEATE 10MG TAB .5 QD - No Longer Active VIOXX 25MG TABLET 1 QD No Longer Active LIPITOR 10MG TABLET .5 QPM No Longer Active AVANDIA 4MG TABS 1 QD No Longer Active 09/16/03 pt has appt. on 10/12/03 cm/ma LIPITOR 10MG TABLET 1 QPM No Longer Active ENALAPRIL MALEATE 10MG TABS 1 QD - No Longer Active ENALAPRIL MALEATE 5MG TAB 1 QD - No Longer Active AMOXICILLIN 500MG CAPS 1 Q 8HR - No Longer Active GUAIFENESIN W/CODEINE 100-10MG 10 Q 4HR - No Longer Active LIPITOR 10MG TABS 1 QPM No Longer Active AVANDIA 8MG TABLET 1 QD No Longer Active VIOXX 25MG TABLET 1 QD No Longer Active 04/22/[address] WEBB CM/MA AVANDIA 8MG TABS 1 QD - No Longer Active ENALAPRIL MALEATE 5MG TAB 1 QD - No Longer Active ENALAPRIL MALEATE 5MG TABS 1 QD - No Longer Active VIOXX 25MG TABS 1 QD - No Longer Active 04/22/[address] WEBB CM/MA NOVOLIN N 100U/ML UNITS 15 QAM - No Longer Active HUMULIN N 100U/ML UNITS 15 QAM - No Longer Active AVANDIA 4MG TABS 1 QD - No Longer Active HUMULIN N 100U/ML UNITS 8 QPM - No Longer Active Advance Directives Directive Yes / No Effective Date File Name No Information Encounters Encounter Description Practice Location Reason(s) For Visit Diagnoses Date Provider Providers Copied on Encounter [facility], [address], [place], [place], [address] , [place] tel:[phone] [facility] No Information Mar-0 6-201 1 Webbkolby Marr. [facility], [facility] [address], [place], [place], [address] . tel: [phone] [facility], [address], [place], [place], [address] , tel: [phone] [facility] DMII WO CMP UNCNTRLDVACCINATION FOR TD-DTDMII WO CMP NT ST UNCNTRSCRN MALIG NEOP-PROSTATEBENIGN HYPERTENSIONLONG-TE RM USE MEDS NECHYPERLIPIDEMIA NEC/NOS 5-200 6 Webb Tejinder. [address] [place] [address], [facility] [address], [place], [place], [address] . tel: [phone] [facility], [address], [place], [place], [address] , tel: [phone] [facility] No Information 5-200 5 Jon Hernandeznis. [address] [place] [address], [facility] [address], [place], [place], [address] . tel: [phone] [facility], [address], [place], [place], [address] , [place] tel: [phone] [facility] DMII KETO NT ST UNCNTRLDRHINITIS DUE TO POLLEN 4-200 3 Webb Tejinder. [address] [place] [address], [facility] [address], [place], [place], [address] . tel: [phone] [facility], [address], [place], [place], [address] , [place] tel: [phone] [facility] ACUTE URI NOS 8-200 2 Webb Tejinder. [address] [place] [address], [facility] [address], [place], [place], [address] . tel: [phone] [facility], [address], [place], [place], [address] , tel: [phone] [facility] JOINT PAIN-ANKLE 4-200 2 Webb Tejinder. [address] [facility], [facility] [address], [facility] [place], [id number] . tel: [phone] [facility], [address], [place], [place], [address] , tel: [phone] [facility] GOUT NOS 1 Jon Marr. [address] [place] [address], [facility] [address], [facility] [place], [address] . tel: [phone] [facility], [address], [place], [place], [address] , tel: [phone] [facility] JOINT PAIN-L/LEGSCREEN-DI ABETES MELLITUSSCREEN LIPOID DISORDERS 1 Jon Marr. [address] [facility], [facility] [address], [facility] [place], [address] . tel: [phone] Family History Family Member Type Diagnosis Age At Onset No Information Immunizations Vaccine Date Status Comments 19943 - DTaP_DTP_DT_PEDS administered Falguni rce: Source Unspecified Payers Payer name Insurance type Covered constitution party ID Authoriza tion(s) No Information Social History Type Description Quantity Date Captured Comments Sex Male Smoking Status No Information Chief Complaint And Reason For Visit No Information Reason For Referral Reason For Referral No Information History Of Present Illness Encounter Date Complaint History Of Prese nt Illness No Information Functional Status Date Functional Assessmen t No Information Medications Administered Medication Instructions Dosage Effective Dates (start - stop) Status Comments ENALAPRIL MALEATE 10 MG TAB 1 QD - No Longer Active ENALAPRIL MALEATE 10MG TAB .5 QD - No Longer Active AVANDIA 4MG TABLET 1 QAM - No Longer Active 09/16/03 pt has appt. on 10/12/03 cm/ma AVANDIA 8MG TABS 1 QD - No Longer Active NOVOLIN N 100U/ML UNITS 15 QAM - No Longer Active Instructions Date Instruction Additional Infor mation No Information Assessments Type Assessment Date No Information Patient Care Teams Name Effective Dates (start - stop) Status Members No Information
[2025-03-07 10:15] LABS: Add Urine Microscopic? YES; Appearance Urine Clear (Clear); Glucose Urine UA Negative (Negative); Leukocyte Esterase Ur 1+ LEU/UL (Negative); Need Manual Microscopic Reviewed; Nitrate Urine Negative (Negative); Non Pathogenic Casts 0-2; Specific Grav Ur 1.015 (1.001-1.035)
[2025-03-07 10:20] LABS: Hemoglobin A1C 6.2 % (<5.7)
[2025-03-07 10:24] LABS: Alanine Aminotransferase 18 U/L (6-50); Albumin Level 4.3 g/dL (3.5-5.1); Alkaline Phosphatase 104 U/L (38-126); Anion Gap 11 mmol/L (4-12); Aspartate Amino Transferase 31 U/L (17-59); Bilirubin,Total 0.4 mg/dL (0.2-1.3); Blood Urea Nitrogen 51 mg/dL (9-20); Calcium 9.1 mg/dL (8.4-10.2); Carbon Dioxide 23 mmol/L (22-30); Chloride 107 mmol/L (98-107); Cholesterol 119 mg/dL (0-200); Estimated Glomerular Filt Rate 11; Glucose 146 mg/dL (65-110); HDL Direct 39 mg/dL; Potassium 4.8 mmol/L (3.4-5.0); Sodium 141 mmol/L (137-145); Total Protein 7.4 g/dL (6.3-8.2); Triglycerides 124 mg/dL (<150); Uric Acid 3.9 mg/dL (3.5-8.5)
[2025-03-07 10:59] LABS: Prostate Specific Antigen < 0.1 ng/mL (< OR = 4.0)
[2025-03-07 12:31] LABS: Parathyroid Intact 39.6 pg/mL (14.5-75.2)
[2025-03-07 13:12] LABS: Total Protein Urine Random 66 mg/dL; Ur Ttl Prot Creatinine Ratio 0.52 mg/mg (0-0.20)
[2025-03-07 13:20] LABS: MALB Creatinine Ratio 145.2 mg/g (0-30)
[2025-03-08 13:08] LABS: Chloride, Urine 45 mmol/L (Not Estab.)
[2025-03-08 15:09] LABS: Osmolality, Urine 440 mOsmol/kg (.)
== END 2025-03-07 09:23 | disposition home or self-care (01) ==
PROVIDERS: PCP Internal Medicine; Referring Provider Internal Medicine; Visit Provider Specialist
DX: E11.9 Type 2 diabetes mellitus without complications (principal); E21.3 Hyperparathyroidism, unspecified; E55.9 Vitamin D deficiency, unspecified; E78.5 Hyperlipidemia, unspecified; M10.9 Gout, unspecified; N18.1 Chronic kidney disease, stage 1; N39.0 Urinary tract infection, site not specified; R35.0 Frequency of micturition; R82.90 Unspecified abnormal findings in urine
CPT/HCPCS: 36415; 80053; 80061; 81001; 82043; 82306; 82436; 82570; 83036; 83935; 83970; 84133; 84153; 84156; 84300; 84550; 85025; 87086